=== PATIENT | male | born 1945 | race Two or more races ===

== ENCOUNTER 2020-11-22 13:21 | Emergency (ER) | payer SELFPAY ==
[~2020-11-22] VITALS: Ht 175.3 cm; Wt 136.1 kg
[2020-11-22 13:23] VITALS: BP 118/78
[2020-11-22 14:12] LABS: Basophils # (auto) 0.1 10 ^3/uL (0-0.2); Basophils % (auto) 1.5 % (0.0-2.0); Eosinophils # (auto) 0.1 10 ^3/uL (0-0.8); Eosinophils % (auto) 1.9 % (0.0-7.0); Hematocrit 37.4 % (41.0-53.0); Hemoglobin 12.5 g/dL (13.5-17.5); Lymphocytes # (auto) 0.8 10 ^3/uL (0.4-5.4); Lymphocytes % (auto) 10.6 % (10.0-50.0); Mean Corpuscular Hemoglobin 32.8 pg (28.0-32.0); Mean Corpuscular Hgb Conc. 33.4 g/dL (32.0-36.0); Mean Corpuscular Volume 98.4 fL (80.0-100.0); Monocytes # (auto) 0.4 10 ^3/uL (0-1.3); Neutrophils # (auto) 5.7 10 ^3/uL (1.6-8.6); Nucleated Red Blood Cells % 0.2 %; Red Cell Distribution Width 15.2 % (11.8-14.3); White Blood Cell 7.1 10^3/uL (4.4-10.8)
[2020-11-22 14:32] LABS: INR 1.08 (0.9-1.15); Partial Thromboplastin Time 26.2 sec (23.0-31.2)
[2020-11-22 14:33] LABS: Albumin 3.2 g/dL (3.4-5.0); Anion Gap 9 (5-15); Blood Urea Nitrogen 34 mg/dL (7-18); Calcium 9.1 mg/dL (8.5-10.1); Carbon Dioxide 30 mmol/L (21-32); Chloride 100 mmol/L (98-107); Glucose 112 mg/dL (74-106); Magnesium 1.6 mg/dL (1.6-2.6); Potassium 3.5 mmol/L (3.5-5.1); Sodium 139 mmol/L (136-145)
[2020-11-22 14:39] LABS: Alanine Aminotransferase 31 U/L (16-61); Alkaline Phosphatase 84 U/L (45-117); Aspartate Aminotransferase 28 U/L (15-37); BUN/Creatinine Ratio 19.9; Bilirubin, Total 0.8 mg/dL (0.2-1.0); GFR African American 51 mL/min; GFR Non-African American 42 mL/min; Total Protein 8.1 g/dL (6.4-8.2)
== END 2020-11-22 17:41 | disposition left against medical advice (07) ==
LOC: ER 13:21
DX: R06.02 Shortness of breath (principal); M79.89 Other specified soft tissue disorders; Z53.21 Procedure and treatment not carried out due to patient leaving prior to being seen by health care provider
CPT/HCPCS: 36415; 71045; 80053; 83735; 83880; 84484; 85025; 85610; 85730; 93005

== ENCOUNTER 2020-11-29 13:31 | Emergency (ER) | payer OTHER ==
[~2020-11-29] VITALS: Ht 175.3 cm; Wt 136.1 kg
[2020-11-29 13:35] VITALS: BP 129/81
[2020-11-29] MEDS ORDERED: FUROSEMIDE 40 MG/4 ML VIAL IV ONE (14:00)
[2020-11-29 14:28] LABS: Basophils # (auto) 0.1 10 ^3/uL (0-0.2); Basophils % (auto) 1.6 % (0.0-2.0); Eosinophils # (auto) 0.2 10 ^3/uL (0-0.8); Eosinophils % (auto) 1.9 % (0.0-7.0); Hematocrit 36.3 % (41.0-53.0); Hemoglobin 12.5 g/dL (13.5-17.5); Lymphocytes # (auto) 0.9 10 ^3/uL (0.4-5.4); Lymphocytes % (auto) 10.7 % (10.0-50.0); Mean Corpuscular Hemoglobin 33.7 pg (28.0-32.0); Mean Corpuscular Hgb Conc. 34.5 g/dL (32.0-36.0); Mean Corpuscular Volume 97.6 fL (80.0-100.0); Monocytes # (auto) 0.6 10 ^3/uL (0-1.3); Monocytes % (auto) 7.2 % (0.0-12.0); Neutrophils # (auto) 6.3 10 ^3/uL (1.6-8.6); Neutrophils % (auto) 78.6 % (37.0-80.0); Nucleated Red Blood Cells % 0.1 %; Red Blood Cells 3.72 10^6/uL (4.5-5.90); Red Cell Distribution Width 15.7 % (11.8-14.3); White Blood Cell 8.1 10^3/uL (4.4-10.8)
[2020-11-29 14:48] LABS: Albumin 3.2 g/dL (3.4-5.0); Anion Gap 8 (5-15); Blood Urea Nitrogen 32 mg/dL (7-18); Calcium 9.1 mg/dL (8.5-10.1); Carbon Dioxide 29 mmol/L (21-32); Chloride 96 mmol/L (98-107); Glucose 111 mg/dL (74-106); Magnesium 1.8 mg/dL (1.6-2.6); Potassium 3.7 mmol/L (3.5-5.1); Sodium 133 mmol/L (136-145)
[2020-11-29 14:58] LABS: Alanine Aminotransferase 28 U/L (16-61); Alkaline Phosphatase 93 U/L (45-117); Aspartate Aminotransferase 22 U/L (15-37); BUN/Creatinine Ratio 21.9; Bilirubin, Total 0.8 mg/dL (0.2-1.0); GFR African American 61 mL/min; GFR Non-African American 50 mL/min; Total Protein 8.5 g/dL (6.4-8.2)
== END 2020-11-29 14:47 | disposition left against medical advice (07) ==
LOC: ER 13:31
DX: M79.605 Pain in left leg (principal); M79.604 Pain in right leg; R22.43 Localized swelling, mass and lump, lower limb, bilateral; J44.9 Chronic obstructive pulmonary disease, unspecified; I12.0 Hypertensive chronic kidney disease with stage 5 chronic kidney disease or end stage renal disease; E11.22 Type 2 diabetes mellitus with diabetic chronic kidney disease; N18.6 End stage renal disease; Z87.891 Personal history of nicotine dependence
CPT/HCPCS: 36415; 71045; 80053; 83735; 83880; 84484; 85025; 93005

== ENCOUNTER 2022-09-25 19:36 | Inpatient (IN) | payer OTHER ==
[~2022-09-25] VITALS: Ht 175.3 cm; Wt 114.4 kg
[2022-09-25 21:01] LABS: Basophils # (auto) 0.1 10 ^3/uL (0-0.2); Basophils % (auto) 0.7 % (0.0-2.0); Eosinophils # (auto) 0 10 ^3/uL (0-0.8); Eosinophils % (auto) 0.1 % (0.0-7.0); Hematocrit 42.7 % (41.0-53.0); Hemoglobin 14.5 g/dL (13.5-17.5); Lymphocytes # (auto) 0.2 10 ^3/uL (0.4-5.4); Lymphocytes % (auto) 2.3 % (10.0-50.0); Mean Corpuscular Hemoglobin 33.2 pg (28.0-32.0); Mean Corpuscular Volume 97.8 fL (80.0-100.0); Monocytes # (auto) 0.7 10 ^3/uL (0-1.3); Neutrophils # (auto) 9.6 10 ^3/uL (1.6-8.6); Neutrophils % (auto) 89.9 % (37.0-80.0); Nucleated Red Blood Cells % 0.1 %; Red Blood Cells 4.37 10^6/uL (4.5-5.90); Red Cell Distribution Width 16.2 % (11.8-14.3); White Blood Cell 10.7 10^3/uL (4.4-10.8)
[2022-09-25 21:17] LABS: Albumin 3.1 g/dL (3.4-5.0); BUN/Creatinine Ratio 24.7 (10.0-20.0); Calcium 9.1 mg/dL (8.5-10.1); Potassium 3.9 mmol/L (3.5-5.1)
[2022-09-25 21:20] LABS: Bilirubin, Total 1.3 mg/dL (0.2-1.0); Total Protein 8.2 g/dL (6.4-8.2)
[2022-09-25] MEDS ORDERED: AMIODARONE HCL 150 MG in D5W 5% 100 ML IV ONE (22:15)
[2022-09-25] MEDS ORDERED: AMIODARONE HCL (50 MG/ ML) 3 ML VIAL IV ONE (22:26)
[2022-09-25] MEDS ORDERED: HEPARIN SODIUM (PORCINE) 5000 UNITS/ML 1ML VIAL IV ONE (23:00)
[2022-09-25] MEDS ORDERED: HEPARIN DRIP/D5W 100UNITS/ML 250 ML IV SCH (23:00)
[2022-09-25] MEDS ORDERED: AMIODARONE 450mg/250ml AE 250 ML IV SCH (23:00)
[2022-09-25 23:22] LABS: Urine Bacteria NONE SEEN /hpf (None Seen); Urine Blood 3+ /uL (Negative); Urine Specific Gravity 1.015 (1.001-1.035); Urine WBC 3 /hpf (0 - 3)
[2022-09-25 23:25] LABS: INR 1.03 (0.9-1.15); Partial Thromboplastin Time 30.6 sec (24.6-33.4)
[2022-09-26] MEDS ORDERED: DEXTROSE (50%) 50ML SYRG IV PRN (00:15)
[2022-09-26] MEDS ORDERED: diphenhdrAMINE HCL 50 MG/1 ML VL IV ONE (00:15)
[2022-09-26] MEDS ORDERED: MORPHINE SULFATE INJ 2 MG/ml SYRG IV PRN (00:30)
[2022-09-26] MEDS ORDERED: NITROGLYCERIN 0.4 MG SL TAB SL PRN (00:30)
[2022-09-26 05:01] LABS: Basophils # (auto) 0 10 ^3/uL (0-0.2); Basophils % (auto) 0.3 % (0.0-2.0); Eosinophils # (auto) 0.1 10 ^3/uL (0-0.8); Eosinophils % (auto) 0.7 % (0.0-7.0); Hematocrit 40.3 % (41.0-53.0); Hemoglobin 13.7 g/dL (13.5-17.5); Lymphocytes # (auto) 0.5 10 ^3/uL (0.4-5.4); Lymphocytes % (auto) 5.5 % (10.0-50.0); Mean Corpuscular Hemoglobin 33.1 pg (28.0-32.0); Mean Corpuscular Hgb Conc. 33.9 g/dL (32.0-36.0); Mean Corpuscular Volume 97.6 fL (80.0-100.0); Monocytes # (auto) 0.9 10 ^3/uL (0-1.3); Neutrophils # (auto) 8.4 10 ^3/uL (1.6-8.6); Neutrophils % (auto) 84.5 % (37.0-80.0); Nucleated Red Blood Cells % 0.1 %; Red Blood Cells 4.12 10^6/uL (4.5-5.90); Red Cell Distribution Width 16.1 % (11.8-14.3); White Blood Cell 9.9 10^3/uL (4.4-10.8)
[2022-09-26 05:09] LABS: Calcium 8.6 mg/dL (8.5-10.1); Potassium 3.9 mmol/L (3.5-5.1)
[2022-09-26 05:14] LABS: BUN/Creatinine Ratio 23.2 (10.0-20.0); Bilirubin, Total 1.6 mg/dL (0.2-1.0); Total Protein 7.4 g/dL (6.4-8.2)
[2022-09-26] MEDS: SODIUM CHLOR 0.9% PF (SALINE LOCK) 10ML VIAL/SYR IV SCH ×3 (06:14→23:17)
[2022-09-26] MEDS: InsuLIN REG 1unit/0.01ml Soln (100units/ml) SC SCH ×4 (06:48→22:00)
[2022-09-26] MEDS: ACCU-CHEK COMFORT CURVE STRIP VI SCH ×4 (06:48→23:15)
[2022-09-26] MEDS: AMIODARONE 450mg/250ml AE 250 ML IV SCH ×2 (06:53→23:22)
[2022-09-26 07:29] LABS: INR 1.1 (0.9-1.15); Partial Thromboplastin Time 52.7 sec (24.6-33.4)
[2022-09-26] MEDS: ONDANSETRON HCL 4 MG/2 ML VIAL IV PRN (08:51)
[2022-09-26] MEDS ORDERED: [UNRECOGNIZED DRUG - CODE] EX (09:12)
[2022-09-26] MEDS ORDERED: FLUT50AE IN (09:12)
[2022-09-26] MEDS ORDERED: METF-370 PO (09:12)
[2022-09-26] MEDS ORDERED: EMPA1TAB3 PO (09:12)
[2022-09-26] MEDS ORDERED: TRAM50TA2 PO (09:12)
[2022-09-26] MEDS ORDERED: SPIR25TA8 PO (09:12)
[2022-09-26] MEDS ORDERED: TAMS0.4C36 PO (09:12)
[2022-09-26] MEDS ORDERED: DOCU1CAP46 PO (09:12)
[2022-09-26] MEDS ORDERED: TRIA0.1O TOP (09:12)
[2022-09-26] MEDS ORDERED: APIX5TAB PO (09:12)
[2022-09-26] MEDS ORDERED: ESOM20CA PO (09:12)
[2022-09-26] MEDS ORDERED: SACU1TAB PO (09:12)
[2022-09-26] MEDS ORDERED: METO1TAB9 PO (09:12)
[2022-09-26] MEDS ORDERED: CAPS0.1C6 EX (09:12)
[2022-09-26] MEDS ORDERED: ATOR40TA52 PO (09:12)
[2022-09-26] MEDS: FAMOTIDINE (10MG/ML) 2ML VL IV SCH ×2 (10:13→23:23)
[2022-09-26] MEDS: CARVEDILOL 12.5 MG TAB PO SCH ×2 (10:13→23:17)
[2022-09-26] MEDS: FUROSEMIDE 40 MG/4 ML VIAL IV SCH (10:13)
[2022-09-26] MEDS ORDERED: AMIODARONE 450mg/250ml AE 250 ML IV SCH (12:45)
[2022-09-26 13:20] LABS: INR 1.08 (0.9-1.15); Partial Thromboplastin Time 46.4 sec (24.6-33.4)
[2022-09-26] MEDS: METOPROLOL SUCCINATE XL 50 MG TAB PO SCH (13:31)
[2022-09-26 14:30] VITALS: BP 106/63
[2022-09-26] MEDS: HEPARIN DRIP/D5W 100UNITS/ML 250 ML IV SCH (15:15)
[2022-09-26] MEDS: HYDROcodone-ACET 5/325MG TAB PO PRN ×2 (16:12→23:19)
[2022-09-26 17:03] VITALS: BP 115/77
[2022-09-26 20:00] VITALS: BP 113/69
[2022-09-26 21:33] LABS: INR 1.07 (0.9-1.15); Partial Thromboplastin Time 46.7 sec (24.6-33.4)
[2022-09-26 22:00] VITALS: BP 113/69
[2022-09-27] VITALS (7 sets, daily range): BP systolic 100–121; BP diastolic 66–81
[2022-09-27] MEDS: HEPARIN DRIP/D5W 100UNITS/ML 250 ML IV SCH ×2 (02:04→18:30)
[2022-09-27] MEDS: HYDROcodone-ACET 5/325MG TAB PO PRN (04:24)
[2022-09-27 05:53] LABS: Basophils # (auto) 0.1 10 ^3/uL (0-0.2); Basophils % (auto) 0.6 % (0.0-2.0); Eosinophils # (auto) 1.1 10 ^3/uL (0-0.8); Eosinophils % (auto) 12.7 % (0.0-7.0); Hematocrit 37.2 % (41.0-53.0); Hemoglobin 12.6 g/dL (13.5-17.5); Lymphocytes # (auto) 0.7 10 ^3/uL (0.4-5.4); Lymphocytes % (auto) 8.1 % (10.0-50.0); Mean Corpuscular Hemoglobin 33.2 pg (28.0-32.0); Mean Corpuscular Hgb Conc. 33.8 g/dL (32.0-36.0); Mean Corpuscular Volume 98.4 fL (80.0-100.0); Monocytes # (auto) 0.5 10 ^3/uL (0-1.3); Monocytes % (auto) 6.5 % (0.0-12.0); Neutrophils % (auto) 72.1 % (37.0-80.0); Red Blood Cells 3.78 10^6/uL (4.5-5.90); Red Cell Distribution Width 16.3 % (11.8-14.3); White Blood Cell 8.3 10^3/uL (4.4-10.8)
[2022-09-27 06:06] LABS: Albumin 2.4 g/dL (3.4-5.0); Calcium 8.8 mg/dL (8.5-10.1); Potassium 3.9 mmol/L (3.5-5.1)
[2022-09-27 06:08] LABS: BUN/Creatinine Ratio 26.5 (10.0-20.0)
[2022-09-27 06:09] LABS: INR 1.07 (0.9-1.15); Partial Thromboplastin Time 61.8 sec (24.6-33.4)
[2022-09-27 06:15] LABS: Bilirubin, Total 1.2 mg/dL (0.2-1.0); Total Protein 6.6 g/dL (6.4-8.2)
[2022-09-27] MEDS: SODIUM CHLOR 0.9% PF (SALINE LOCK) 10ML VIAL/SYR IV SCH ×3 (06:50→21:35)
[2022-09-27] MEDS: ACCU-CHEK COMFORT CURVE STRIP VI SCH ×4 (06:53→21:44)
[2022-09-27] MEDS: InsuLIN REG 1unit/0.01ml Soln (100units/ml) SC SCH ×4 (07:07→21:45)
[2022-09-27] MEDS: FAMOTIDINE (10MG/ML) 2ML VL IV SCH ×2 (09:51→21:35)
[2022-09-27] MEDS: FUROSEMIDE 40 MG/4 ML VIAL IV SCH (09:52)
[2022-09-27] MEDS: CARVEDILOL 12.5 MG TAB PO SCH ×2 (09:53→21:36)
[2022-09-27] MEDS: METOPROLOL SUCCINATE XL 50 MG TAB PO SCH (09:53)
[2022-09-27 12:02] LABS: INR 1.07 (0.9-1.15); Partial Thromboplastin Time 65.5 sec (24.6-33.4)
[2022-09-27] MEDS: AMIODARONE 450mg/250ml AE 250 ML IV SCH (12:45)
[2022-09-27 17:24] LABS: INR 1.03 (0.9-1.15); Partial Thromboplastin Time 49.8 sec (24.6-33.4)
[2022-09-27] MEDS ORDERED: VANCOMYCIN PER PHARMACY 0 MG IV SCH (23:00)
[2022-09-27 23:26] LABS: INR 1.06 (0.9-1.15); Partial Thromboplastin Time 44.1 sec (24.6-33.4)
[2022-09-27] MEDS ORDERED: VANCOMYCIN 1GM/250ML 250 ML IV ONE (23:30)
[2022-09-28] MEDS: HEPARIN DRIP/D5W 100UNITS/ML 250 ML IV SCH ×2 (01:20→18:01)
[2022-09-28] MEDS: HYDROcodone-ACET 5/325MG TAB PO PRN ×4 (02:26→21:29)
[2022-09-28 03:19] LABS: INR 1.05 (0.9-1.15); Partial Thromboplastin Time 55.2 sec (24.6-33.4)
[2022-09-28 05:00] VITALS: BP 108/50
[2022-09-28] MEDS: InsuLIN REG 1unit/0.01ml Soln (100units/ml) SC SCH ×4 (06:38→21:33)
[2022-09-28] MEDS: ACCU-CHEK COMFORT CURVE STRIP VI SCH ×4 (06:38→21:28)
[2022-09-28] MEDS: SODIUM CHLOR 0.9% PF (SALINE LOCK) 10ML VIAL/SYR IV SCH ×3 (06:39→21:28)
[2022-09-28 08:00] VITALS: BP 112/70
[2022-09-28] MEDS: FUROSEMIDE 40 MG/4 ML VIAL IV SCH (09:39)
[2022-09-28] MEDS: FAMOTIDINE (10MG/ML) 2ML VL IV SCH ×2 (09:39→21:28)
[2022-09-28] MEDS: CARVEDILOL 12.5 MG TAB PO SCH ×2 (09:40→21:29)
[2022-09-28] MEDS: METOPROLOL SUCCINATE XL 50 MG TAB PO SCH (09:41)
[2022-09-28 11:51] LABS: INR 1.07 (0.9-1.15); Partial Thromboplastin Time 58.5 sec (24.6-33.4)
[2022-09-28] MEDS: FOLIC ACID 1 MG, MULTIPLE VITAMIN 10 ML, MAGNESIUM SULF SDV 50% 8 MEQ, THIAMINE INJ 100... INJ SCH ×5 (13:50)
[2022-09-28] MEDS: VANCOMYCIN 1GM/250ML 250 ML IV SCH (14:55)
[2022-09-28] MEDS: chlordiazePOXIDE HCL 25 MG CAP PO PRN ×2 (14:56→21:29)
[2022-09-28 22:00] VITALS: BP 115/68
[2022-09-29 01:01] LABS: INR 1.1 (0.9-1.15)
[2022-09-29 01:03] LABS: Partial Thromboplastin Time 81.1 sec (24.6-33.4)
[2022-09-29] MEDS: chlordiazePOXIDE HCL 25 MG CAP PO PRN (03:28)
[2022-09-29] MEDS: HYDROcodone-ACET 5/325MG TAB PO PRN ×3 (04:41→17:16)
[2022-09-29] MEDS: VANCOMYCIN 1GM/250ML 250 ML IV SCH ×2 (04:42→20:41)
[2022-09-29] MEDS: SODIUM CHLOR 0.9% PF (SALINE LOCK) 10ML VIAL/SYR IV SCH ×3 (04:42→21:35)
[2022-09-29 05:00] VITALS: BP 105/66
[2022-09-29] MEDS: ACCU-CHEK COMFORT CURVE STRIP VI SCH ×4 (06:04→21:34)
[2022-09-29] MEDS: InsuLIN REG 1unit/0.01ml Soln (100units/ml) SC SCH ×4 (06:07→22:00)
[2022-09-29 08:23] LABS: INR 1.08 (0.9-1.15)
[2022-09-29 08:27] LABS: Partial Thromboplastin Time 85.9 sec (24.6-33.4)
[2022-09-29 09:00] VITALS: BP 113/72
[2022-09-29] MEDS ORDERED: HEPARIN DRIP/D5W 100UNITS/ML 250 ML IV SCH (09:15)
[2022-09-29] MEDS: FUROSEMIDE 40 MG/4 ML VIAL IV SCH (09:30)
[2022-09-29] MEDS: FAMOTIDINE (10MG/ML) 2ML VL IV SCH ×2 (09:30→21:34)
[2022-09-29] MEDS: CARVEDILOL 12.5 MG TAB PO SCH ×2 (09:31→22:00)
[2022-09-29] MEDS: METOPROLOL SUCCINATE XL 50 MG TAB PO SCH (09:31)
[2022-09-29] MEDS: DOCUSATE SOD 100 MG CAP PO PRN (09:32)
[2022-09-29 13:00] VITALS: BP 103/55
[2022-09-29] MEDS: FOLIC ACID 1 MG, MULTIPLE VITAMIN 10 ML, MAGNESIUM SULF SDV 50% 8 MEQ, THIAMINE INJ 100... INJ SCH ×5 (13:22)
[2022-09-29 15:58] LABS: INR 1.08 (0.9-1.15)
[2022-09-29 17:00] VITALS: BP 116/67
[2022-09-29 22:00] VITALS: BP_SYST 104; BP_SYST 110; BP_DIAS 54; BP_DIAS 71
[2022-09-29 22:14] LABS: INR 1.08 (0.9-1.15); Partial Thromboplastin Time 48.9 sec (24.6-33.4)
[2022-09-29] MEDS: HEPARIN DRIP/D5W 100UNITS/ML 250 ML IV SCH (22:30)
[2022-09-30] MEDS: HEPARIN DRIP/D5W 100UNITS/ML 250 ML IV SCH (02:59)
[2022-09-30 05:00] VITALS: BP 110/71
[2022-09-30] MEDS: ACCU-CHEK COMFORT CURVE STRIP VI SCH ×4 (05:40→22:29)
[2022-09-30] MEDS: SODIUM CHLOR 0.9% PF (SALINE LOCK) 10ML VIAL/SYR IV SCH ×3 (05:40→22:28)
[2022-09-30] MEDS: InsuLIN REG 1unit/0.01ml Soln (100units/ml) SC SCH ×4 (06:05→22:26)
[2022-09-30 06:38] LABS: BUN/Creatinine Ratio 17.3 (10.0-20.0); Calcium 8.9 mg/dL (8.5-10.1); Potassium 4.8 mmol/L (3.5-5.1)
[2022-09-30 06:45] LABS: INR 1.06 (0.9-1.15); Partial Thromboplastin Time 62.9 sec (24.6-33.4)
[2022-09-30 06:47] LABS: Basophils # (auto) 0 10 ^3/uL (0-0.2); Basophils % (auto) 0.3 % (0.0-2.0); Eosinophils # (auto) 0.5 10 ^3/uL (0-0.8); Hematocrit 34.4 % (41.0-53.0); Hemoglobin 11.4 g/dL (13.5-17.5); Lymphocytes # (auto) 0.8 10 ^3/uL (0.4-5.4); Lymphocytes % (auto) 5.7 % (10.0-50.0); Mean Corpuscular Hemoglobin 32.8 pg (28.0-32.0); Mean Corpuscular Hgb Conc. 33.2 g/dL (32.0-36.0); Monocytes # (auto) 1.1 10 ^3/uL (0-1.3); Monocytes % (auto) 8.2 % (0.0-12.0); Neutrophils % (auto) 81.8 % (37.0-80.0); Nucleated Red Blood Cells % 0.1 %; Red Blood Cells 3.47 10^6/uL (4.5-5.90); Red Cell Distribution Width 15.9 % (11.8-14.3); White Blood Cell 13.4 10^3/uL (4.4-10.8)
[2022-09-30] MEDS: FUROSEMIDE 40 MG/4 ML VIAL IV SCH (08:45)
[2022-09-30] MEDS: FAMOTIDINE (10MG/ML) 2ML VL IV SCH ×2 (08:46→22:20)
[2022-09-30] MEDS: HYDROcodone-ACET 5/325MG TAB PO PRN ×2 (08:47→22:20)
[2022-09-30] MEDS: DOCUSATE SOD 100 MG CAP PO PRN (08:47)
[2022-09-30 09:00] VITALS: BP 102/65
[2022-09-30] MEDS: CARVEDILOL 12.5 MG TAB PO SCH ×2 (10:00→22:20)
[2022-09-30] MEDS: METOPROLOL SUCCINATE XL 50 MG TAB PO SCH (10:00)
[2022-09-30] MEDS ORDERED: levoFLOXacin 500MG 100 ML IV ONE (10:45)
[2022-09-30] MEDS: VANCOMYCIN 1GM/250ML 250 ML IV SCH (11:23)
[2022-09-30 13:26] LABS: INR 1.06 (0.9-1.15); Partial Thromboplastin Time 69.8 sec (24.6-33.4)
[2022-09-30] MEDS: FOLIC ACID 1 MG, MULTIPLE VITAMIN 10 ML, MAGNESIUM SULF SDV 50% 8 MEQ, THIAMINE INJ 100... INJ SCH ×5 (14:01)
[2022-09-30 17:00] VITALS: BP 111/72
[2022-09-30 19:22] LABS: INR 1.08 (0.9-1.15)
[2022-09-30 19:27] LABS: Partial Thromboplastin Time 78.4 sec (24.6-33.4)
[2022-09-30] MEDS ORDERED: HEPARIN DRIP/D5W 100UNITS/ML 250 ML IV SCH (19:45)
[2022-10-01] MEDS ORDERED: diphenhdrAMINE HCL 25 MG CAP PO ONE (01:00)
[2022-10-01 03:02] LABS: INR 1.08 (0.9-1.15); Partial Thromboplastin Time 55.4 sec (24.6-33.4)
[2022-10-01] MEDS: VANCOMYCIN 1GM/250ML 250 ML IV SCH ×2 (05:04→23:53)
[2022-10-01] MEDS: SODIUM CHLOR 0.9% PF (SALINE LOCK) 10ML VIAL/SYR IV SCH ×3 (05:05→21:55)
[2022-10-01] MEDS: ACCU-CHEK COMFORT CURVE STRIP VI SCH ×4 (06:17→21:54)
[2022-10-01] MEDS: InsuLIN REG 1unit/0.01ml Soln (100units/ml) SC SCH ×4 (06:19→21:36)
[2022-10-01] MEDS: HYDROcodone-ACET 5/325MG TAB PO PRN ×3 (07:04→13:12)
[2022-10-01 09:53] LABS: INR 1.05 (0.9-1.15); Partial Thromboplastin Time 44.3 sec (24.6-33.4)
[2022-10-01 10:00] VITALS: BP 103/64
[2022-10-01] MEDS: METOPROLOL SUCCINATE XL 50 MG TAB PO SCH (10:00)
[2022-10-01] MEDS: CARVEDILOL 12.5 MG TAB PO SCH ×2 (10:00→21:34)
[2022-10-01] MEDS: FUROSEMIDE 40 MG/4 ML VIAL IV SCH (10:02)
[2022-10-01] MEDS: FAMOTIDINE (10MG/ML) 2ML VL IV SCH ×2 (10:03→21:35)
[2022-10-01] MEDS: levoFLOXacin 500MG 100 ML IV SCH (10:03)
[2022-10-01] MEDS: HEPARIN DRIP/D5W 100UNITS/ML 250 ML IV SCH ×3 (10:48→18:16)
[2022-10-01 13:00] VITALS: BP 93/66
[2022-10-01] MEDS: FOLIC ACID 1 MG, MULTIPLE VITAMIN 10 ML, MAGNESIUM SULF SDV 50% 8 MEQ, THIAMINE INJ 100... INJ SCH ×5 (13:25)
[2022-10-01 16:29] VITALS: BP 92/63
[2022-10-01 16:31] VITALS: BP 104/65
[2022-10-01 17:26] LABS: INR 1.04 (0.9-1.15); Partial Thromboplastin Time 38.3 sec (24.6-33.4)
[2022-10-01 22:00] VITALS: BP 121/69
[2022-10-02 01:02] LABS: INR 1.04 (0.9-1.15); Partial Thromboplastin Time 56.1 sec (24.6-33.4)
[2022-10-02 05:00] VITALS: BP 102/65
[2022-10-02] MEDS: DOCUSATE SOD 100 MG CAP PO PRN (06:17)
[2022-10-02] MEDS: HYDROcodone-ACET 5/325MG TAB PO PRN ×3 (06:17→22:19)
[2022-10-02] MEDS: SODIUM CHLOR 0.9% PF (SALINE LOCK) 10ML VIAL/SYR IV SCH ×3 (06:19→22:18)
[2022-10-02] MEDS: ACCU-CHEK COMFORT CURVE STRIP VI SCH ×4 (06:20→22:19)
[2022-10-02] MEDS: InsuLIN REG 1unit/0.01ml Soln (100units/ml) SC SCH ×4 (06:22→22:00)
[2022-10-02] MEDS: HEPARIN DRIP/D5W 100UNITS/ML 250 ML IV SCH ×2 (08:03→21:30)
[2022-10-02 09:56] VITALS: BP 105/65
[2022-10-02] MEDS: METOPROLOL SUCCINATE XL 50 MG TAB PO SCH (10:00)
[2022-10-02] MEDS: CARVEDILOL 12.5 MG TAB PO SCH ×2 (10:00→22:27)
[2022-10-02] MEDS: FUROSEMIDE 40 MG/4 ML VIAL IV SCH (10:06)
[2022-10-02] MEDS: levoFLOXacin 500MG 100 ML IV SCH (10:06)
[2022-10-02] MEDS: FAMOTIDINE (10MG/ML) 2ML VL IV SCH ×2 (10:06→22:18)
[2022-10-02 12:00] VITALS: BP 107/67
[2022-10-02 13:24] LABS: INR 1.03 (0.9-1.15); Partial Thromboplastin Time 47.1 sec (24.6-33.4)
[2022-10-02] MEDS ORDERED: HEPARIN DRIP/D5W 100UNITS/ML 250 ML IV SCH (14:05)
[2022-10-02] MEDS: FOLIC ACID 1 MG, MULTIPLE VITAMIN 10 ML, MAGNESIUM SULF SDV 50% 8 MEQ, THIAMINE INJ 100... INJ SCH ×5 (14:15)
[2022-10-02 17:00] VITALS: BP 110/73
[2022-10-02 20:56] LABS: INR 1.07 (0.9-1.15)
[2022-10-02 21:01] LABS: Partial Thromboplastin Time 82.4 sec (24.6-33.4)
[2022-10-02] MEDS: ONDANSETRON HCL 4 MG/2 ML VIAL IV PRN (23:43)
[2022-10-03 03:42] LABS: Basophils # (auto) 0 10 ^3/uL (0-0.2); Basophils % (auto) 0.4 % (0.0-2.0); Eosinophils # (auto) 0.9 10 ^3/uL (0-0.8); Eosinophils % (auto) 13.5 % (0.0-7.0); Hematocrit 36.3 % (41.0-53.0); Hemoglobin 12.2 g/dL (13.5-17.5); Lymphocytes % (auto) 15.1 % (10.0-50.0); Mean Corpuscular Hemoglobin 32.6 pg (28.0-32.0); Mean Corpuscular Hgb Conc. 33.5 g/dL (32.0-36.0); Mean Corpuscular Volume 97.2 fL (80.0-100.0); Monocytes # (auto) 0.8 10 ^3/uL (0-1.3); Monocytes % (auto) 12.7 % (0.0-12.0); Neutrophils # (auto) 3.7 10 ^3/uL (1.6-8.6); Neutrophils % (auto) 58.3 % (37.0-80.0); Nucleated Red Blood Cells % 0.2 %; Red Blood Cells 3.74 10^6/uL (4.5-5.90); White Blood Cell 6.4 10^3/uL (4.4-10.8)
[2022-10-03 04:12] LABS: INR 1.06 (0.9-1.15)
[2022-10-03 04:49] LABS: Partial Thromboplastin Time 71.7 sec (24.6-33.4)
[2022-10-03] MEDS: InsuLIN REG 1unit/0.01ml Soln (100units/ml) SC SCH ×4 (06:14→22:02)
[2022-10-03] MEDS: SODIUM CHLOR 0.9% PF (SALINE LOCK) 10ML VIAL/SYR IV SCH ×3 (06:21→21:58)
[2022-10-03] MEDS: HYDROcodone-ACET 5/325MG TAB PO PRN ×3 (06:21→22:03)
[2022-10-03] MEDS: ACCU-CHEK COMFORT CURVE STRIP VI SCH ×4 (06:32→21:45)
[2022-10-03 09:00] VITALS: BP 97/63
[2022-10-03 09:50] LABS: INR 1.03 (0.9-1.15); Partial Thromboplastin Time 34.5 sec (24.6-33.4)
[2022-10-03] MEDS: METOPROLOL SUCCINATE XL 50 MG TAB PO SCH (10:00)
[2022-10-03] MEDS: CARVEDILOL 12.5 MG TAB PO SCH ×2 (10:00→21:59)
[2022-10-03] MEDS: levoFLOXacin 500MG 100 ML IV SCH (10:09)
[2022-10-03] MEDS: FAMOTIDINE (10MG/ML) 2ML VL IV SCH ×2 (10:09→21:57)
[2022-10-03] MEDS: FUROSEMIDE 40 MG/4 ML VIAL IV SCH (10:10)
[2022-10-03] MEDS: HEPARIN DRIP/D5W 100UNITS/ML 250 ML IV SCH ×2 (12:13→18:03)
[2022-10-03 13:00] VITALS: BP 106/76
[2022-10-03 14:51] LABS: INR 1.06 (0.9-1.15); Partial Thromboplastin Time 60.6 sec (24.6-33.4)
[2022-10-03] MEDS: FOLIC ACID 1 MG, MULTIPLE VITAMIN 10 ML, MAGNESIUM SULF SDV 50% 8 MEQ, THIAMINE INJ 100... INJ SCH ×5 (15:06)
[2022-10-03 17:00] VITALS: BP 111/65
[2022-10-03] MEDS: VANCOMYCIN 750mg/250ml 250 ML IV SCH (18:29)
[2022-10-03 20:47] LABS: INR 1.06 (0.9-1.15)
[2022-10-03 20:49] LABS: Partial Thromboplastin Time 77.1 sec (24.6-33.4)
[2022-10-03 22:00] VITALS: BP 116/61
[2022-10-04] MEDS: HYDROcodone-ACET 5/325MG TAB PO PRN ×3 (03:01→16:25)
[2022-10-04 03:33] LABS: INR 1.06 (0.9-1.15)
[2022-10-04 05:00] VITALS: BP 105/66
[2022-10-04] MEDS: InsuLIN REG 1unit/0.01ml Soln (100units/ml) SC SCH ×4 (07:00→22:37)
[2022-10-04] MEDS: ACCU-CHEK COMFORT CURVE STRIP VI SCH ×4 (07:07→21:32)
[2022-10-04] MEDS: SODIUM CHLOR 0.9% PF (SALINE LOCK) 10ML VIAL/SYR IV SCH ×3 (07:08→21:32)
[2022-10-04 08:00] VITALS: BP 119/66
[2022-10-04 09:43] LABS: Hematocrit 37.8 % (41.0-53.0); Hemoglobin 12.6 g/dL (13.5-17.5); Mean Corpuscular Hemoglobin 32.4 pg (28.0-32.0); Mean Corpuscular Hgb Conc. 33.4 g/dL (32.0-36.0); Mean Corpuscular Volume 96.9 fL (80.0-100.0); Red Cell Distribution Width 16.1 % (11.8-14.3); White Blood Cell 8.4 10^3/uL (4.4-10.8)
[2022-10-04 09:46] LABS: Basophils % (manual) 0 (0.0-2.0); Blast Cells 0; Metamyelocytes % 0; Myelocytes % 0; Promyelocytes % 0
[2022-10-04 09:54] LABS: INR 1.06 (0.9-1.15); Partial Thromboplastin Time 66.9 sec (24.6-33.4)
[2022-10-04] MEDS: HEPARIN DRIP/D5W 100UNITS/ML 250 ML IV SCH ×2 (10:08→12:19)
[2022-10-04] MEDS: FAMOTIDINE (10MG/ML) 2ML VL IV SCH ×2 (10:24→21:21)
[2022-10-04] MEDS: FUROSEMIDE 40 MG/4 ML VIAL IV SCH (10:24)
[2022-10-04] MEDS: levoFLOXacin 500MG 100 ML IV SCH (10:25)
[2022-10-04] MEDS: METOPROLOL SUCCINATE XL 50 MG TAB PO SCH (10:25)
[2022-10-04] MEDS: CARVEDILOL 12.5 MG TAB PO SCH ×2 (10:26→21:33)
[2022-10-04 12:00] VITALS: BP 96/65
[2022-10-04 12:22] LABS: Band Neutrophils % (manual) 2; Eosinophils % (manual) 11 (0-7); Lymphocytes % (manual) 10 (10.0-50.0); Monocytes % (manual) 9 (0-12); Reactive Lymphocytes 1
[2022-10-04] MEDS: FOLIC ACID 1 MG, MULTIPLE VITAMIN 10 ML, MAGNESIUM SULF SDV 50% 8 MEQ, THIAMINE INJ 100... INJ SCH ×5 (12:48)
[2022-10-04 16:00] VITALS: BP 108/81
[2022-10-04 17:00] LABS: INR 1.06 (0.9-1.15); Partial Thromboplastin Time 65.6 sec (24.6-33.4)
[2022-10-04] MEDS: VANCOMYCIN 750mg/250ml 250 ML IV SCH (17:31)
[2022-10-04 22:00] VITALS: BP 104/64
[2022-10-05] MEDS ORDERED: HYDROcodone-ACET 5/325MG TAB PO ONE (05:45)
[2022-10-05] MEDS: SODIUM CHLOR 0.9% PF (SALINE LOCK) 10ML VIAL/SYR IV SCH ×3 (06:03→22:13)
[2022-10-05] MEDS: ACCU-CHEK COMFORT CURVE STRIP VI SCH ×4 (06:09→21:21)
[2022-10-05] MEDS: InsuLIN REG 1unit/0.01ml Soln (100units/ml) SC SCH ×4 (06:09→21:21)
[2022-10-05] MEDS: HEPARIN DRIP/D5W 100UNITS/ML 250 ML IV SCH ×3 (06:25→23:43)
[2022-10-05 07:09] LABS: INR 1.04 (0.9-1.15); Partial Thromboplastin Time 44.7 sec (24.6-33.4)
[2022-10-05 08:55] VITALS: BP 116/65
[2022-10-05] MEDS: METOPROLOL SUCCINATE XL 50 MG TAB PO SCH (09:23)
[2022-10-05] MEDS: FAMOTIDINE (10MG/ML) 2ML VL IV SCH ×2 (09:23→22:10)
[2022-10-05] MEDS: CARVEDILOL 12.5 MG TAB PO SCH ×2 (09:23→22:12)
[2022-10-05] MEDS: FUROSEMIDE 40 MG/4 ML VIAL IV SCH (09:23)
[2022-10-05] MEDS: levoFLOXacin 500MG 100 ML IV SCH (09:24)
[2022-10-05] MEDS: HYDROcodone-ACET 5/325MG TAB PO PRN (12:24)
[2022-10-05] MEDS: FOLIC ACID 1 MG, MULTIPLE VITAMIN 10 ML, MAGNESIUM SULF SDV 50% 8 MEQ, THIAMINE INJ 100... INJ SCH ×5 (12:27)
[2022-10-05 12:55] VITALS: BP 101/58
[2022-10-05 15:55] LABS: Basophils # (auto) 0.1 10 ^3/uL (0-0.2); Basophils % (auto) 1.4 % (0.0-2.0); Eosinophils # (auto) 0.8 10 ^3/uL (0-0.8); Eosinophils % (auto) 8.1 % (0.0-7.0); Hematocrit 36.6 % (41.0-53.0); Hemoglobin 12.2 g/dL (13.5-17.5); Lymphocytes # (auto) 0.8 10 ^3/uL (0.4-5.4); Lymphocytes % (auto) 8.4 % (10.0-50.0); Mean Corpuscular Hemoglobin 32.2 pg (28.0-32.0); Mean Corpuscular Hgb Conc. 33.4 g/dL (32.0-36.0); Mean Corpuscular Volume 96.4 fL (80.0-100.0); Monocytes # (auto) 0.9 10 ^3/uL (0-1.3); Monocytes % (auto) 9.4 % (0.0-12.0); Neutrophils # (auto) 7.2 10 ^3/uL (1.6-8.6); Neutrophils % (auto) 72.7 % (37.0-80.0); Nucleated Red Blood Cells % 0.1 %; Red Blood Cells 3.79 10^6/uL (4.5-5.90); Red Cell Distribution Width 16.2 % (11.8-14.3); White Blood Cell 9.9 10^3/uL (4.4-10.8)
[2022-10-05 16:27] LABS: INR 1.07 (0.9-1.15); Partial Thromboplastin Time 61.7 sec (24.6-33.4)
[2022-10-05 17:07] VITALS: BP 103/66
[2022-10-05] MEDS: VANCOMYCIN 750mg/250ml 250 ML IV SCH (17:53)
[2022-10-05 22:39] LABS: INR 1.09 (0.9-1.15)
[2022-10-05 22:54] LABS: Partial Thromboplastin Time 73.8 sec (24.6-33.4)
[2022-10-06 00:33] VITALS: BP 103/60
[2022-10-06] MEDS: HYDROcodone-ACET 5/325MG TAB PO PRN ×3 (03:16→16:53)
[2022-10-06 03:38] LABS: Basophils # (auto) 0 10 ^3/uL (0-0.2); Basophils % (auto) 0.3 % (0.0-2.0); Eosinophils # (auto) 0.8 10 ^3/uL (0-0.8); Eosinophils % (auto) 6.4 % (0.0-7.0); Hematocrit 37.1 % (41.0-53.0); Hemoglobin 12.4 g/dL (13.5-17.5); Lymphocytes % (auto) 8.3 % (10.0-50.0); Mean Corpuscular Hemoglobin 32.7 pg (28.0-32.0); Mean Corpuscular Hgb Conc. 33.5 g/dL (32.0-36.0); Mean Corpuscular Volume 97.4 fL (80.0-100.0); Monocytes % (auto) 8.3 % (0.0-12.0); Neutrophils # (auto) 9.1 10 ^3/uL (1.6-8.6); Neutrophils % (auto) 76.7 % (37.0-80.0); Nucleated Red Blood Cells % 0.1 %; Red Blood Cells 3.81 10^6/uL (4.5-5.90); Red Cell Distribution Width 16.1 % (11.8-14.3); White Blood Cell 11.8 10^3/uL (4.4-10.8)
[2022-10-06] MEDS: SODIUM CHLOR 0.9% PF (SALINE LOCK) 10ML VIAL/SYR IV SCH ×3 (06:08→22:00)
[2022-10-06] MEDS: InsuLIN REG 1unit/0.01ml Soln (100units/ml) SC SCH ×4 (06:21→22:00)
[2022-10-06] MEDS: ACCU-CHEK COMFORT CURVE STRIP VI SCH ×4 (06:22→22:00)
[2022-10-06] MEDS: FUROSEMIDE 40 MG/4 ML VIAL IV SCH (08:57)
[2022-10-06] MEDS: FAMOTIDINE (10MG/ML) 2ML VL IV SCH ×2 (08:57→22:40)
[2022-10-06] MEDS: levoFLOXacin 500MG 100 ML IV SCH (08:57)
[2022-10-06] MEDS: CARVEDILOL 12.5 MG TAB PO SCH ×2 (08:58→22:39)
[2022-10-06] MEDS: METOPROLOL SUCCINATE XL 50 MG TAB PO SCH (08:58)
[2022-10-06 09:00] VITALS: BP 114/83
[2022-10-06] MEDS: ONDANSETRON HCL 4 MG/2 ML VIAL IV PRN (10:42)
[2022-10-06 12:30] VITALS: BP 104/67
[2022-10-06] MEDS: FOLIC ACID 1 MG, MULTIPLE VITAMIN 10 ML, MAGNESIUM SULF SDV 50% 8 MEQ, THIAMINE INJ 100... INJ SCH ×5 (13:15)
[2022-10-06] MEDS: HEPARIN DRIP/D5W 100UNITS/ML 250 ML IV SCH (13:17)
[2022-10-06 16:50] VITALS: BP 105/77
[2022-10-06] MEDS: VANCOMYCIN 750mg/250ml 250 ML IV SCH (19:55)
[2022-10-06 22:00] VITALS: BP 133/83
[2022-10-07 05:00] VITALS: BP 104/67
[2022-10-07] MEDS: SODIUM CHLOR 0.9% PF (SALINE LOCK) 10ML VIAL/SYR IV SCH ×3 (06:00→22:00)
[2022-10-07] MEDS: InsuLIN REG 1unit/0.01ml Soln (100units/ml) SC SCH ×4 (06:34→22:20)
[2022-10-07 06:35] LABS: INR 1.07 (0.9-1.15); Partial Thromboplastin Time 54.4 sec (24.6-33.4)
[2022-10-07] MEDS: ACCU-CHEK COMFORT CURVE STRIP VI SCH ×4 (06:39→22:22)
[2022-10-07] MEDS: HEPARIN DRIP/D5W 100UNITS/ML 250 ML IV SCH ×2 (06:47→20:32)
[2022-10-07 08:30] VITALS: BP 106/78
[2022-10-07] MEDS: FUROSEMIDE 40 MG/4 ML VIAL IV SCH (08:33)
[2022-10-07] MEDS: FAMOTIDINE (10MG/ML) 2ML VL IV SCH ×2 (08:33→22:21)
[2022-10-07] MEDS: levoFLOXacin 500MG 100 ML IV SCH (08:33)
[2022-10-07] MEDS: HYDROcodone-ACET 5/325MG TAB PO PRN ×2 (08:34→18:46)
[2022-10-07] MEDS: CARVEDILOL 12.5 MG TAB PO SCH ×2 (08:36→22:21)
[2022-10-07] MEDS: METOPROLOL SUCCINATE XL 50 MG TAB PO SCH (08:36)
[2022-10-07 12:25] LABS: BUN/Creatinine Ratio 14.9 (10.0-20.0); Calcium 9.6 mg/dL (8.5-10.1)
[2022-10-07] MEDS: FOLIC ACID 1 MG, MULTIPLE VITAMIN 10 ML, MAGNESIUM SULF SDV 50% 8 MEQ, THIAMINE INJ 100... INJ SCH ×5 (12:34)
[2022-10-07 13:00] VITALS: BP 93/68
[2022-10-07] MEDS: VANCOMYCIN 750mg/250ml 250 ML IV SCH (20:36)
[2022-10-07 22:00] VITALS: BP 111/74
[2022-10-07] MEDS: ONDANSETRON HCL 4 MG/2 ML VIAL IV PRN (22:21)
[2022-10-07] MEDS: DOCUSATE SOD 100 MG CAP PO PRN (22:25)
[2022-10-08] MEDS: HYDROcodone-ACET 5/325MG TAB PO PRN ×4 (00:49→21:51)
[2022-10-08 05:00] VITALS: BP 102/68
[2022-10-08] MEDS: InsuLIN REG 1unit/0.01ml Soln (100units/ml) SC SCH ×4 (06:20→22:00)
[2022-10-08] MEDS: SODIUM CHLOR 0.9% PF (SALINE LOCK) 10ML VIAL/SYR IV SCH ×3 (06:22→21:56)
[2022-10-08] MEDS: ACCU-CHEK COMFORT CURVE STRIP VI SCH ×4 (06:22→22:03)
[2022-10-08 06:48] LABS: Protein, Urine 64.9 mg/dL (0.0-11.9)
[2022-10-08 06:59] LABS: BUN/Creatinine Ratio 13.9 (10.0-20.0); Calcium 8.9 mg/dL (8.5-10.1); Potassium 3.3 mmol/L (3.5-5.1)
[2022-10-08] MEDS: ONDANSETRON HCL 4 MG/2 ML VIAL IV PRN (07:58)
[2022-10-08 08:00] LABS: INR 1.1 (0.9-1.15)
[2022-10-08] MEDS ORDERED: FUROSEMIDE 40 MG/4 ML VIAL IV ONE (08:00)
[2022-10-08 08:04] LABS: Partial Thromboplastin Time 90.2 sec (24.6-33.4)
[2022-10-08] MEDS: FUROSEMIDE 40 MG/4 ML VIAL IV SCH (08:08)
[2022-10-08] MEDS ORDERED: HEPARIN DRIP/D5W 100UNITS/ML 250 ML IV SCH (08:15)
[2022-10-08 08:24] VITALS: BP 112/70
[2022-10-08] MEDS: FAMOTIDINE (10MG/ML) 2ML VL IV SCH ×2 (09:17→21:49)
[2022-10-08] MEDS: levoFLOXacin 500MG 100 ML IV SCH (09:17)
[2022-10-08] MEDS: CARVEDILOL 12.5 MG TAB PO SCH ×2 (09:19→21:56)
[2022-10-08] MEDS: METOPROLOL SUCCINATE XL 50 MG TAB PO SCH (09:19)
[2022-10-08] MEDS ORDERED: SODIUM CHLORIDE 1 GM TAB PO ONE (10:45)
[2022-10-08] MEDS ORDERED: POTASSIUM EFFERVESENT TAB 25 MEQ PO ONE (11:45)
[2022-10-08 13:00] VITALS: BP 93/61
[2022-10-08 15:46] LABS: INR 1.05 (0.9-1.15); Partial Thromboplastin Time 31.3 sec (24.6-33.4)
[2022-10-08 17:00] VITALS: BP 113/65
[2022-10-08] MEDS: VANCOMYCIN 750mg/250ml 250 ML IV SCH (20:32)
[2022-10-08 22:00] VITALS: BP 101/72
[2022-10-09 05:00] VITALS: BP 101/71
[2022-10-09] MEDS: HYDROcodone-ACET 5/325MG TAB PO PRN ×2 (05:09→22:58)
[2022-10-09] MEDS: DOCUSATE SOD 100 MG CAP PO PRN (05:20)
[2022-10-09] MEDS: ACCU-CHEK COMFORT CURVE STRIP VI SCH ×3 (05:34→18:16)
[2022-10-09] MEDS: InsuLIN REG 1unit/0.01ml Soln (100units/ml) SC SCH ×3 (05:34→18:19)
[2022-10-09] MEDS: SODIUM CHLOR 0.9% PF (SALINE LOCK) 10ML VIAL/SYR IV SCH ×3 (05:35→22:00)
[2022-10-09 05:43] LABS: BUN/Creatinine Ratio 16.6 (10.0-20.0); Calcium 9.1 mg/dL (8.5-10.1)
[2022-10-09 07:30] VITALS: BP 98/59
[2022-10-09 09:00] VITALS: BP 106/72
[2022-10-09] MEDS: CARVEDILOL 12.5 MG TAB PO SCH ×2 (10:00→22:48)
[2022-10-09] MEDS: FAMOTIDINE (10MG/ML) 2ML VL IV SCH (10:23)
[2022-10-09] MEDS: levoFLOXacin 500MG 100 ML IV SCH (10:23)
[2022-10-09] MEDS: METOPROLOL SUCCINATE XL 50 MG TAB PO SCH (10:24)
[2022-10-09] MEDS ORDERED: LACTULOSE 20Gm/30ML SOLN PO ONE (12:45)
[2022-10-09] MEDS ORDERED: ENOXAPARIN SOD 40 MG/0.4 ML SYRINGE SC ONE (12:45)
[2022-10-09 13:00] VITALS: BP 98/70
[2022-10-09 17:00] VITALS: BP 96/75
[2022-10-09] MEDS: TAMSULOSIN HYDROCHLORIDE 0.4 MG CAP PO SCH (18:15)
[2022-10-09 22:00] VITALS: BP 108/64
[2022-10-09] MEDS: LACTULOSE 20Gm/30ML SOLN PO SCH (22:48)
[2022-10-10 05:00] VITALS: BP 117/76
[2022-10-10] MEDS: ACCU-CHEK COMFORT CURVE STRIP VI SCH ×3 (06:00→12:17)
[2022-10-10] MEDS: SODIUM CHLOR 0.9% PF (SALINE LOCK) 10ML VIAL/SYR IV SCH ×3 (06:00→21:49)
[2022-10-10] MEDS: InsuLIN REG 1unit/0.01ml Soln (100units/ml) SC SCH ×2 (06:51→12:19)
[2022-10-10] MEDS ORDERED: ONDANSETRON HCL 4 MG/2 ML VIAL IV PRN (07:00)
[2022-10-10 07:16] LABS: Basophils # (auto) 0.1 10 ^3/uL (0-0.2); Basophils % (auto) 0.8 % (0.0-2.0); Eosinophils # (auto) 0.2 10 ^3/uL (0-0.8); Eosinophils % (auto) 2.2 % (0.0-7.0); Hematocrit 37.7 % (41.0-53.0); Hemoglobin 12.8 g/dL (13.5-17.5); Lymphocytes # (auto) 1.1 10 ^3/uL (0.4-5.4); Lymphocytes % (auto) 10.8 % (10.0-50.0); Mean Corpuscular Hemoglobin 32.4 pg (28.0-32.0); Mean Corpuscular Hgb Conc. 33.9 g/dL (32.0-36.0); Mean Corpuscular Volume 95.4 fL (80.0-100.0); Monocytes # (auto) 0.9 10 ^3/uL (0-1.3); Monocytes % (auto) 8.5 % (0.0-12.0); Neutrophils # (auto) 8.1 10 ^3/uL (1.6-8.6); Neutrophils % (auto) 77.7 % (37.0-80.0); Nucleated Red Blood Cells % 0.1 %; Red Blood Cells 3.95 10^6/uL (4.5-5.90); Red Cell Distribution Width 15.4 % (11.8-14.3); White Blood Cell 10.5 10^3/uL (4.4-10.8)
[2022-10-10 07:30] VITALS: BP 117/76
[2022-10-10 07:57] LABS: Potassium 4.4 mmol/L (3.5-5.1)
[2022-10-10 08:02] LABS: BUN/Creatinine Ratio 18.6 (10.0-20.0); Calcium 9.3 mg/dL (8.5-10.1)
[2022-10-10 09:00] VITALS: BP_SYST 123; BP_SYST 94; BP_DIAS 66; BP_DIAS 69
[2022-10-10] MEDS: LACTULOSE 20Gm/30ML SOLN PO SCH ×2 (09:41→21:48)
[2022-10-10] MEDS: CARVEDILOL 12.5 MG TAB PO SCH ×2 (09:42→21:50)
[2022-10-10] MEDS: ENOXAPARIN SOD 40 MG/0.4 ML SYRINGE SC SCH (09:47)
[2022-10-10] MEDS: levoFLOXacin 500MG 100 ML IV SCH (09:48)
[2022-10-10] MEDS ORDERED: FAMOTIDINE (10MG/ML) 2ML VL IV SCH (10:00)
[2022-10-10] MEDS ORDERED: DOCUSATE SOD 100 MG CAP PO ONE (16:15)
[2022-10-10] MEDS ORDERED: SODIUM CHLORIDE 0.9% 1,000 ML IV SCH ×2 (16:15)
[2022-10-10] MEDS ORDERED: LACTULOSE 20Gm/30ML SOLN PO ONE (16:15)
[2022-10-10] MEDS: HYDROcodone-ACET 5/325MG TAB PO PRN (16:32)
[2022-10-10 17:00] VITALS: BP 107/64
[2022-10-10] MEDS: TAMSULOSIN HYDROCHLORIDE 0.4 MG CAP PO SCH (17:39)
[2022-10-10] MEDS ORDERED: FUROSEMIDE 20 MG/2 ML VIAL IV ONE (18:45)
[2022-10-10] MEDS ORDERED: BISACODYL 10 MG RECT SUPP PR ONE (18:45)
[2022-10-10 20:00] VITALS: BP 117/76
[2022-10-10 21:44] VITALS: BP 112/74
[2022-10-10] MEDS: DOCUSATE SOD 100 MG CAP PO PRN (21:48)
[2022-10-11] MEDS: SODIUM CHLOR 0.9% PF (SALINE LOCK) 10ML VIAL/SYR IV SCH ×2 (06:07→14:00)
[2022-10-11 06:41] LABS: Calcium 9.1 mg/dL (8.5-10.1); Potassium 4.8 mmol/L (3.5-5.1)
[2022-10-11 06:47] LABS: BUN/Creatinine Ratio 17.9 (10.0-20.0)
[2022-10-11 09:00] VITALS: BP 106/66
[2022-10-11] MEDS: ENOXAPARIN SOD 40 MG/0.4 ML SYRINGE SC SCH (10:13)
[2022-10-11] MEDS: LACTULOSE 20Gm/30ML SOLN PO SCH (10:13)
[2022-10-11] MEDS: CARVEDILOL 12.5 MG TAB PO SCH (10:13)
[2022-10-11] MEDS: levoFLOXacin 500MG 100 ML IV SCH (10:13)
[2022-10-11 13:00] VITALS: BP 89/46
[2022-10-11] MEDS ORDERED: SODIUM CHLORIDE 0.9% 1,000 ML IV SCH (17:30)
[2022-10-11] MEDS ORDERED: metroNIDAZOLE 500MG/100ML 100 ML IV ONE (17:30)
[2022-10-11 17:51] VITALS: BP 110/69
[2022-10-11] MEDS: TAMSULOSIN HYDROCHLORIDE 0.4 MG CAP PO SCH (18:10)
[2022-10-11] MEDS ORDERED: POLYETHYLENE GLYCOL 17 GM PWDR PO ONE (19:00)
[2022-10-11] MEDS ORDERED: PANTOPRAZOLE 40 MG/10 ML VIAL INJ IV ONE (20:00)
[2022-10-11] MEDS ORDERED: MORPHINE SULFATE INJ 2 MG/ml SYRG IV PRN (20:00)
[2022-10-11] MEDS ORDERED: MORPHINE SULFATE INJ 2 MG/ml SYRG ONE (20:12)
[2022-10-11] MEDS ORDERED: ONDANSETRON HCL 4 MG/2 ML VIAL ONE (20:12)
[2022-10-11] MEDS ORDERED: ONDANSETRON HCL 4 MG/2 ML VIAL IV PRN (20:15)
[2022-10-11] MEDS ORDERED: FLEET MINERAL OIL ENEMA 133 ML PR ONE (21:00)
[2022-10-11] MEDS ORDERED: ALBUMIN 25% 50 ML IV ONE (21:00)
[2022-10-11 21:12] VITALS: BP 89/57
[2022-10-11 21:49] LABS: INR 1.09 (0.9-1.15); Partial Thromboplastin Time 31.7 sec (24.6-33.4)
[2022-10-11 22:00] VITALS: BP 91/64
[2022-10-11 23:00] VITALS: BP 111/70
[2022-10-11] MEDS: METOCLOPRAMIDE HCL 5MG/ml INJ 2ml VIAL IV SCH (23:28)
[2022-10-11] MEDS ORDERED: KETOROLAC TROMETH 30 MG/ML 1ML VIAL IV PRN (23:30)
[2022-10-12] VITALS (17 sets, daily range): BP systolic 86–120; BP diastolic 53–69
[2022-10-12] MEDS: metroNIDAZOLE 500MG/100ML 100 ML IV SCH ×3 (02:21→16:44)
[2022-10-12] MEDS: D5W/SOD CHL 0.45%/KCL 20MEQ 1,000 ML IV SCH ×3 (02:21→23:33)
[2022-10-12] MEDS: SODIUM CHLOR 0.9% PF (SALINE LOCK) 10ML VIAL/SYR IV SCH ×5 (02:23→21:05)
[2022-10-12 05:19] LABS: Potassium 3.8 mmol/L (3.5-5.1)
[2022-10-12 05:20] LABS: Hemoglobin 11.8 g/dL (13.5-17.5); Mean Corpuscular Hemoglobin 32.4 pg (28.0-32.0); Mean Corpuscular Hgb Conc. 33.6 g/dL (32.0-36.0); Mean Corpuscular Volume 96.3 fL (80.0-100.0); Red Blood Cells 3.63 10^6/uL (4.5-5.90); White Blood Cell 7.1 10^3/uL (4.4-10.8)
[2022-10-12 05:23] LABS: BUN/Creatinine Ratio 22.4 (10.0-20.0); Calcium 8.5 mg/dL (8.5-10.1)
[2022-10-12 05:25] LABS: Basophils % (manual) 0 (0.0-2.0); Blast Cells 0; Metamyelocytes % 0; Myelocytes % 0; Promyelocytes % 0; Reactive Lymphocytes 0
[2022-10-12] MEDS: METOCLOPRAMIDE HCL 5MG/ml INJ 2ml VIAL IV SCH ×3 (06:49→21:05)
[2022-10-12] MEDS ORDERED: GASTROGRAFIN 120 ML SOL ONE (07:49)
[2022-10-12] MEDS ORDERED: DEXTROSE (50%) 50ML SYRG IV SCH (08:15)
[2022-10-12] MEDS ORDERED: TPN PER PHARMACY 500 ML IV SCH (08:15)
[2022-10-12] MEDS: PANTOPRAZOLE 40 MG/10 ML VIAL INJ IV SCH (08:19)
[2022-10-12] MEDS: levoFLOXacin 500MG 100 ML IV SCH (08:20)
[2022-10-12] MEDS: ENOXAPARIN SOD 40 MG/0.4 ML SYRINGE SC SCH (08:23)
[2022-10-12] MEDS: ACCU-CHEK COMFORT CURVE STRIP VI SCH ×3 (08:24→23:58)
[2022-10-12 08:32] LABS: Albumin 2.4 g/dL (3.4-5.0); Bilirubin, Direct 0.4 mg/dL (0-0.2); Bilirubin, Total 0.9 mg/dL (0.2-1.0); Magnesium 2.3 mg/dL (1.6-2.6); Phosphorus 3.2 mg/dL (2.5-4.90); Total Protein 7.1 g/dL (6.4-8.2)
[2022-10-12 08:34] LABS: Band Neutrophils % (manual) 1; Eosinophils % (manual) 2 (0-7); Lymphocytes % (manual) 17 (10.0-50.0); Monocytes % (manual) 5 (0-12)
[2022-10-12] MEDS ORDERED: SODIUM CHLORIDE 0.9% 1,000 ML IV ONE (10:45)
[2022-10-12] MEDS ORDERED: ALBUMIN 25% 100 ML IV ONE (11:00)
[2022-10-12] MEDS: InsuLIN REG 1unit/0.01ml Soln (100units/ml) SC SCH ×3 (11:32→23:56)
[2022-10-12] MEDS ORDERED: LIDOCAINE 1% (LOCAL ANESTH.) PF 5ml SDV ID ONE (14:00)
[2022-10-12] MEDS ORDERED: CLINIMIX PER PHARMACY 0 ML IV SCH (20:00)
[2022-10-12] MEDS ORDERED: PPN PER PHARMACY IV NR ×7 (20:00)
[2022-10-12] MEDS: MORPHINE SULFATE INJ 2 MG/ml SYRG IV PRN (21:06)
[2022-10-13] VITALS (14 sets, daily range): BP systolic 97–123; BP diastolic 50–72
[2022-10-13] MEDS: metroNIDAZOLE 500MG/100ML 100 ML IV SCH (01:50)
[2022-10-13] MEDS: MORPHINE SULFATE INJ 2 MG/ml SYRG IV PRN ×5 (02:27→23:29)
[2022-10-13 05:24] LABS: Albumin 2.5 g/dL (3.4-5.0); Calcium 7.9 mg/dL (8.5-10.1); Magnesium 2.4 mg/dL (1.6-2.6); Potassium 3.6 mmol/L (3.5-5.1)
[2022-10-13 05:28] LABS: BUN/Creatinine Ratio 22.4 (10.0-20.0); Bilirubin, Total 0.7 mg/dL (0.2-1.0); Total Protein 6.3 g/dL (6.4-8.2)
[2022-10-13] MEDS: SODIUM CHLOR 0.9% PF (SALINE LOCK) 10ML VIAL/SYR IV SCH ×3 (06:31→13:12)
[2022-10-13] MEDS: ACCU-CHEK COMFORT CURVE STRIP VI SCH ×4 (06:31→23:29)
[2022-10-13] MEDS: METOCLOPRAMIDE HCL 5MG/ml INJ 2ml VIAL IV SCH ×3 (06:31→23:29)
[2022-10-13] MEDS: InsuLIN REG 1unit/0.01ml Soln (100units/ml) SC SCH ×4 (06:32→23:34)
[2022-10-13] MEDS: D5W/SOD CHL 0.45%/KCL 20MEQ 1,000 ML IV SCH (06:40)
[2022-10-13] MEDS ORDERED: D5W/SOD CHL 0.45%/KCL 20MEQ 1,000 ML IV SCH (09:15)
[2022-10-13] MEDS: PANTOPRAZOLE 40 MG/10 ML VIAL INJ IV SCH (09:59)
[2022-10-13] MEDS: ENOXAPARIN SOD 40 MG/0.4 ML SYRINGE SC SCH (10:00)
[2022-10-13] MEDS ORDERED: SODIUM PHOSP 40 MEQ in D5W 5% 250 ML IV ONE (12:00)
[2022-10-13] MEDS: SODIUM CHLORIDE 0.9% 1,000 ML IV SCH (14:39)
[2022-10-13] MEDS ORDERED: POTASSIUM PHOSPHATE IV NR ×11 (20:00)
[2022-10-13] MEDS ORDERED: TPN PER PHARMACY 0 ML IV SCH (20:00)
[2022-10-13] MEDS ORDERED: SODIUM PHOSPHATES IV NR ×11 (20:00)
[2022-10-13] MEDS ORDERED: FAT EMULSION IV NR ×11 (20:00)
[2022-10-13] MEDS ORDERED: [UNRECOGNIZED DRUG - OTHER] IV NR ×11 (20:00)
[2022-10-14] MEDS: SODIUM CHLOR 0.9% PF (SALINE LOCK) 10ML VIAL/SYR IV SCH ×7 (00:30→22:16)
[2022-10-14 05:00] VITALS: BP 104/65
[2022-10-14] MEDS: METOCLOPRAMIDE HCL 5MG/ml INJ 2ml VIAL IV SCH ×3 (06:48→22:16)
[2022-10-14] MEDS: InsuLIN REG 1unit/0.01ml Soln (100units/ml) SC SCH ×3 (06:49→17:44)
[2022-10-14] MEDS: ACCU-CHEK COMFORT CURVE STRIP VI SCH ×3 (06:50→17:44)
[2022-10-14] MEDS: SODIUM CHLORIDE 0.9% 1,000 ML IV SCH (06:50)
[2022-10-14 07:53] LABS: Potassium 3.6 mmol/L (3.5-5.1)
[2022-10-14 08:10] LABS: Albumin 2.5 g/dL (3.4-5.0); Bilirubin, Total 0.7 mg/dL (0.2-1.0); Magnesium 2.1 mg/dL (1.6-2.6); Phosphorus 2.6 mg/dL (2.5-4.90); Total Protein 6.3 g/dL (6.4-8.2)
[2022-10-14 08:58] VITALS: BP 128/86
[2022-10-14] MEDS: PANTOPRAZOLE 40 MG/10 ML VIAL INJ IV SCH (09:28)
[2022-10-14] MEDS: ENOXAPARIN SOD 40 MG/0.4 ML SYRINGE SC SCH (09:29)
[2022-10-14 12:45] VITALS: BP 116/77
[2022-10-14] MEDS: MORPHINE SULFATE INJ 2 MG/ml SYRG IV PRN ×2 (13:05→22:50)
[2022-10-14 17:00] VITALS: BP 113/74
[2022-10-14] MEDS ORDERED: POTASSIUM ACETATE IV NR ×11 (20:00)
[2022-10-14] MEDS ORDERED: SODIUM PHOSPHATES IV NR ×11 (20:00)
[2022-10-14] MEDS ORDERED: [UNRECOGNIZED DRUG - OTHER] IV NR ×11 (20:00)
[2022-10-14] MEDS ORDERED: FAT EMULSION IV NR ×11 (20:00)
[2022-10-14 20:10] VITALS: BP 123/78
[2022-10-14 22:00] VITALS: BP 123/78
[2022-10-14] MEDS: APIXABAN 5 MG TAB PO SCH (22:16)
[2022-10-14] MEDS: MELATONIN 5 MG TAB PO SCH (22:37)
[2022-10-15] MEDS: ACCU-CHEK COMFORT CURVE STRIP VI SCH ×4 (01:05→17:18)
[2022-10-15] MEDS: InsuLIN REG 1unit/0.01ml Soln (100units/ml) SC SCH ×4 (01:05→17:19)
[2022-10-15 05:00] VITALS: BP 151/52
[2022-10-15] MEDS: METOCLOPRAMIDE HCL 5MG/ml INJ 2ml VIAL IV SCH (06:30)
[2022-10-15] MEDS: SODIUM CHLOR 0.9% PF (SALINE LOCK) 10ML VIAL/SYR IV SCH ×5 (06:34→23:07)
[2022-10-15 07:05] LABS: Albumin 2.4 g/dL (3.4-5.0); Potassium 3.7 mmol/L (3.5-5.1)
[2022-10-15 07:08] LABS: BUN/Creatinine Ratio 21.5 (10.0-20.0); Bilirubin, Total 0.6 mg/dL (0.2-1.0); Phosphorus 2.8 mg/dL (2.5-4.90); Total Protein 6.4 g/dL (6.4-8.2)
[2022-10-15 09:37] VITALS: BP 154/73
[2022-10-15] MEDS: PANTOPRAZOLE 40 MG/10 ML VIAL INJ IV SCH (09:39)
[2022-10-15] MEDS: APIXABAN 5 MG TAB PO SCH ×2 (09:39→23:09)
[2022-10-15] MEDS: MORPHINE SULFATE INJ 2 MG/ml SYRG IV PRN (11:20)
[2022-10-15 13:19] VITALS: BP 107/62
[2022-10-15 17:00] VITALS: BP 117/76
[2022-10-15 22:00] VITALS: BP 123/80
[2022-10-15] MEDS: METOPROLOL TARTRATE 25 MG TAB PO SCH (23:09)
[2022-10-15] MEDS: MELATONIN 5 MG TAB PO SCH (23:14)
[2022-10-16] MEDS: ACCU-CHEK COMFORT CURVE STRIP VI SCH ×4 (00:08→18:00)
[2022-10-16 05:00] VITALS: BP 107/75
[2022-10-16] MEDS: MORPHINE SULFATE INJ 2 MG/ml SYRG IV PRN ×2 (05:13→09:48)
[2022-10-16] MEDS: SODIUM CHLOR 0.9% PF (SALINE LOCK) 10ML VIAL/SYR IV SCH ×5 (05:15→22:46)
[2022-10-16] MEDS: InsuLIN REG 1unit/0.01ml Soln (100units/ml) SC SCH ×5 (05:17→23:04)
[2022-10-16 08:58] LABS: BUN/Creatinine Ratio 20.5 (10.0-20.0); Calcium 8.4 mg/dL (8.5-10.1); Potassium 4.1 mmol/L (3.5-5.1)
[2022-10-16 09:00] VITALS: BP 103/72
[2022-10-16] MEDS: APIXABAN 5 MG TAB PO SCH ×2 (09:47→22:45)
[2022-10-16] MEDS: PANTOPRAZOLE 40 MG/10 ML VIAL INJ IV SCH (09:47)
[2022-10-16] MEDS: METOPROLOL TARTRATE 25 MG TAB PO SCH ×2 (09:48→22:45)
[2022-10-16 13:00] VITALS: BP 98/51
[2022-10-16 17:00] VITALS: BP 99/59
[2022-10-16 22:00] VITALS: BP 106/62
[2022-10-16] MEDS: MELATONIN 5 MG TAB PO SCH (22:46)
[2022-10-17 05:00] VITALS: BP 114/73
[2022-10-17] MEDS: ACCU-CHEK COMFORT CURVE STRIP VI SCH ×5 (05:07→23:49)
[2022-10-17] MEDS: SODIUM CHLOR 0.9% PF (SALINE LOCK) 10ML VIAL/SYR IV SCH ×5 (05:08→22:06)
[2022-10-17] MEDS: InsuLIN REG 1unit/0.01ml Soln (100units/ml) SC SCH ×4 (05:13→23:51)
[2022-10-17 09:00] VITALS: BP 136/83
[2022-10-17] MEDS: APIXABAN 5 MG TAB PO SCH ×2 (10:18→22:06)
[2022-10-17] MEDS: METOPROLOL TARTRATE 25 MG TAB PO SCH ×2 (10:19→22:06)
[2022-10-17] MEDS: PANTOPRAZOLE 40 MG TAB PO SCH (10:19)
[2022-10-17 13:00] VITALS: BP 102/56
[2022-10-17 17:00] VITALS: BP 103/67
[2022-10-17 22:00] VITALS: BP 120/76
[2022-10-17] MEDS: MELATONIN 5 MG TAB PO SCH (22:07)
[2022-10-18] MEDS: MORPHINE SULFATE INJ 2 MG/ml SYRG IV PRN (02:40)
[2022-10-18 05:00] VITALS: BP 105/73
[2022-10-18] MEDS: SODIUM CHLOR 0.9% PF (SALINE LOCK) 10ML VIAL/SYR IV SCH ×5 (05:28→22:00)
[2022-10-18] MEDS: ACCU-CHEK COMFORT CURVE STRIP VI SCH ×4 (05:28→23:50)
[2022-10-18] MEDS: InsuLIN REG 1unit/0.01ml Soln (100units/ml) SC SCH ×4 (05:32→23:54)
[2022-10-18 06:01] LABS: Hematocrit 33.4 % (41.0-53.0); Hemoglobin 11.1 g/dL (13.5-17.5); Mean Corpuscular Hemoglobin 31.8 pg (28.0-32.0); Mean Corpuscular Hgb Conc. 33.4 g/dL (32.0-36.0); Mean Corpuscular Volume 95.4 fL (80.0-100.0); Red Cell Distribution Width 15.6 % (11.8-14.3); White Blood Cell 3.7 10^3/uL (4.4-10.8)
[2022-10-18 06:30] LABS: Basophils % (manual) 0 (0.0-2.0); Blast Cells 0; Promyelocytes % 0; Reactive Lymphocytes 0
[2022-10-18 08:23] LABS: Band Neutrophils % (manual) 9; Eosinophils % (manual) 18 (0-7); Lymphocytes % (manual) 10 (10.0-50.0); Metamyelocytes % 2; Monocytes % (manual) 8 (0-12); Myelocytes % 3
[2022-10-18 09:00] VITALS: BP 109/71
[2022-10-18] MEDS: METOPROLOL TARTRATE 25 MG TAB PO SCH ×2 (10:15→21:59)
[2022-10-18] MEDS: PANTOPRAZOLE 40 MG TAB PO SCH (10:15)
[2022-10-18] MEDS: APIXABAN 5 MG TAB PO SCH ×2 (10:15→21:58)
[2022-10-18 13:00] VITALS: BP 107/78
[2022-10-18 17:00] VITALS: BP 113/70
[2022-10-18 22:00] VITALS: BP 130/81
[2022-10-18] MEDS: MELATONIN 5 MG TAB PO SCH (22:01)
[2022-10-19 05:00] VITALS: BP 119/82
[2022-10-19] MEDS: ACCU-CHEK COMFORT CURVE STRIP VI SCH ×3 (05:34→19:33)
[2022-10-19] MEDS: SODIUM CHLOR 0.9% PF (SALINE LOCK) 10ML VIAL/SYR IV SCH ×5 (05:34→22:00)
[2022-10-19] MEDS: InsuLIN REG 1unit/0.01ml Soln (100units/ml) SC SCH ×3 (05:36→18:00)
[2022-10-19 09:00] VITALS: BP 129/73
[2022-10-19] MEDS: APIXABAN 5 MG TAB PO SCH ×2 (10:30→22:42)
[2022-10-19] MEDS: METOPROLOL TARTRATE 25 MG TAB PO SCH ×2 (10:30→22:42)
[2022-10-19] MEDS: PANTOPRAZOLE 40 MG TAB PO SCH (10:31)
[2022-10-19] MEDS: MORPHINE SULFATE INJ 2 MG/ml SYRG IV PRN ×2 (15:22→23:56)
[2022-10-19 17:00] VITALS: BP 95/70
[2022-10-19 22:03] VITALS: BP 129/70
[2022-10-19] MEDS: MELATONIN 5 MG TAB PO SCH (22:43)
[2022-10-20] MEDS: ACCU-CHEK COMFORT CURVE STRIP VI SCH ×5 (00:17→23:43)
[2022-10-20] MEDS: MORPHINE SULFATE INJ 2 MG/ml SYRG IV PRN ×3 (04:28→18:22)
[2022-10-20 05:00] VITALS: BP 129/60
[2022-10-20] MEDS: SODIUM CHLOR 0.9% PF (SALINE LOCK) 10ML VIAL/SYR IV SCH ×5 (05:36→22:31)
[2022-10-20] MEDS: InsuLIN REG 1unit/0.01ml Soln (100units/ml) SC SCH ×5 (05:37→23:43)
[2022-10-20 09:00] VITALS: BP 105/67
[2022-10-20] MEDS: PANTOPRAZOLE 40 MG TAB PO SCH (10:33)
[2022-10-20] MEDS: APIXABAN 5 MG TAB PO SCH ×2 (10:33→22:30)
[2022-10-20] MEDS: METOPROLOL TARTRATE 25 MG TAB PO SCH ×2 (10:46→22:30)
[2022-10-20 13:00] VITALS: BP 112/67
[2022-10-20 17:00] VITALS: BP 103/68
[2022-10-20 20:00] VITALS: BP 120/69
[2022-10-20 22:00] VITALS: BP 120/69
[2022-10-20] MEDS: MELATONIN 5 MG TAB PO SCH (22:30)
[2022-10-21] MEDS: MORPHINE SULFATE INJ 2 MG/ml SYRG IV PRN ×2 (01:25→11:04)
[2022-10-21 05:00] VITALS: BP 104/61
[2022-10-21] MEDS: InsuLIN REG 1unit/0.01ml Soln (100units/ml) SC SCH ×3 (05:38→17:50)
[2022-10-21] MEDS: SODIUM CHLOR 0.9% PF (SALINE LOCK) 10ML VIAL/SYR IV SCH ×3 (05:38→17:51)
[2022-10-21] MEDS: ACCU-CHEK COMFORT CURVE STRIP VI SCH ×3 (05:38→17:50)
[2022-10-21 08:52] VITALS: BP 98/49
[2022-10-21] MEDS: PANTOPRAZOLE 40 MG TAB PO SCH (09:43)
[2022-10-21] MEDS: APIXABAN 5 MG TAB PO SCH ×2 (09:43→22:19)
[2022-10-21] MEDS: METOPROLOL TARTRATE 25 MG TAB PO SCH ×2 (09:44→22:00)
[2022-10-21 13:00] VITALS: BP 98/66
[2022-10-21 17:00] VITALS: BP 106/68
[2022-10-21 20:00] VITALS: BP 119/77
[2022-10-21 22:00] VITALS: BP 119/77
[2022-10-21] MEDS: MELATONIN 5 MG TAB PO SCH (22:00)
[2022-10-21] MEDS: DOCUSATE SOD 100 MG CAP PO PRN (22:19)
[2022-10-21] MEDS: ALPRAZolam 0.25 MG TAB PO PRN (22:21)
[2022-10-22] VITALS (7 sets, daily range): BP systolic 89–136; BP diastolic 49–82
[2022-10-22] MEDS: SODIUM CHLOR 0.9% PF (SALINE LOCK) 10ML VIAL/SYR IV SCH ×5 (00:32→14:00)
[2022-10-22] MEDS: ACCU-CHEK COMFORT CURVE STRIP VI SCH ×4 (00:55→17:14)
[2022-10-22] MEDS: ACETAMINOPHEN 325 MG TAB PO PRN (04:28)
[2022-10-22] MEDS: InsuLIN REG 1unit/0.01ml Soln (100units/ml) SC SCH ×4 (06:27→17:46)
[2022-10-22] MEDS: PANTOPRAZOLE 40 MG TAB PO SCH (10:32)
[2022-10-22] MEDS: APIXABAN 5 MG TAB PO SCH ×2 (10:32→22:46)
[2022-10-22] MEDS: METOPROLOL TARTRATE 25 MG TAB PO SCH (10:37)
[2022-10-22] MEDS: MELATONIN 5 MG TAB PO SCH (22:45)
[2022-10-22] MEDS: DOCUSATE SOD 100 MG CAP PO PRN (22:46)
[2022-10-22] MEDS: METOPROLOL TARTRATE 50 MG TAB PO SCH (22:46)
[2022-10-23] MEDS: SODIUM CHLOR 0.9% PF (SALINE LOCK) 10ML VIAL/SYR IV SCH ×7 (00:23→22:39)
[2022-10-23] MEDS: ACCU-CHEK COMFORT CURVE STRIP VI SCH ×4 (00:25→17:06)
[2022-10-23] MEDS: ACETAMINOPHEN 325 MG TAB PO PRN (04:07)
[2022-10-23 05:00] VITALS: BP 107/69
[2022-10-23] MEDS: InsuLIN REG 1unit/0.01ml Soln (100units/ml) SC SCH ×4 (06:00→17:05)
[2022-10-23 06:13] LABS: Hematocrit 32.4 % (41.0-53.0); Mean Corpuscular Hemoglobin 31.8 pg (28.0-32.0); Mean Corpuscular Volume 93.5 fL (80.0-100.0); Red Blood Cells 3.46 10^6/uL (4.5-5.90); Red Cell Distribution Width 15.8 % (11.8-14.3); White Blood Cell 4.2 10^3/uL (4.4-10.8)
[2022-10-23 06:29] LABS: Band Neutrophils % (manual) 0
[2022-10-23 06:30] LABS: Basophils % (manual) 0 (0.0-2.0); Blast Cells 0; Metamyelocytes % 0; Myelocytes % 0; Promyelocytes % 0; Reactive Lymphocytes 0
[2022-10-23 07:37] LABS: Potassium 4.2 mmol/L (3.5-5.1)
[2022-10-23 07:42] LABS: Albumin 2.6 g/dL (3.4-5.0); BUN/Creatinine Ratio 17.7 (10.0-20.0); Calcium 8.5 mg/dL (8.5-10.1); Total Protein 7.3 g/dL (6.4-8.2)
[2022-10-23 08:00] VITALS: BP 87/60
[2022-10-23] MEDS: METOPROLOL TARTRATE 50 MG TAB PO SCH ×2 (10:00→22:38)
[2022-10-23] MEDS: PANTOPRAZOLE 40 MG TAB PO SCH (10:04)
[2022-10-23] MEDS: APIXABAN 5 MG TAB PO SCH ×2 (10:04→22:38)
[2022-10-23 12:00] VITALS: BP 97/64
[2022-10-23 12:30] VITALS: BP 97/64
[2022-10-23 12:32] LABS: Eosinophils % (manual) 15 (0-7); Lymphocytes % (manual) 7 (10.0-50.0); Monocytes % (manual) 7 (0-12)
[2022-10-23] MEDS: DOCUSATE SOD 100 MG CAP PO PRN (14:17)
[2022-10-23 16:00] VITALS: BP 126/84
[2022-10-23 22:00] VITALS: BP 118/83
[2022-10-23] MEDS: MELATONIN 5 MG TAB PO SCH (22:38)
[2022-10-24] MEDS: ACCU-CHEK COMFORT CURVE STRIP VI SCH ×4 (00:26→18:00)
[2022-10-24 05:00] VITALS: BP 102/70
[2022-10-24] MEDS: InsuLIN REG 1unit/0.01ml Soln (100units/ml) SC SCH ×4 (06:00→18:00)
[2022-10-24] MEDS: SODIUM CHLOR 0.9% PF (SALINE LOCK) 10ML VIAL/SYR IV SCH ×5 (06:24→22:16)
[2022-10-24 09:00] VITALS: BP 94/62
[2022-10-24 09:05] VITALS: BP 102/90
[2022-10-24] MEDS: PANTOPRAZOLE 40 MG TAB PO SCH (09:09)
[2022-10-24] MEDS: APIXABAN 5 MG TAB PO SCH ×2 (09:09→22:16)
[2022-10-24] MEDS: ALPRAZolam 0.25 MG TAB PO PRN (10:30)
[2022-10-24] MEDS: METOPROLOL TARTRATE 50 MG TAB PO SCH ×2 (10:31→22:16)
[2022-10-24 13:00] VITALS: BP 118/78
[2022-10-24] MEDS: ACETAMINOPHEN 325 MG TAB PO PRN (15:48)
[2022-10-24 17:00] VITALS: BP 109/71
[2022-10-24] MEDS: diphenhdrAMINE HCL 25 MG CAP PO PRN (17:10)
[2022-10-24 22:00] VITALS: BP 107/67
[2022-10-24] MEDS: MELATONIN 5 MG TAB PO SCH (22:16)
[2022-10-25 05:00] VITALS: BP 108/57
[2022-10-25] MEDS: SODIUM CHLOR 0.9% PF (SALINE LOCK) 10ML VIAL/SYR IV SCH ×5 (05:58→21:40)
[2022-10-25] MEDS: InsuLIN REG 1unit/0.01ml Soln (100units/ml) SC SCH ×4 (05:59→18:00)
[2022-10-25] MEDS: ACCU-CHEK COMFORT CURVE STRIP VI SCH ×4 (05:59→18:00)
[2022-10-25] MEDS: PANTOPRAZOLE 40 MG TAB PO SCH (08:31)
[2022-10-25] MEDS: APIXABAN 5 MG TAB PO SCH ×2 (08:32→21:39)
[2022-10-25 09:00] VITALS: BP 116/58
[2022-10-25] MEDS: diphenhdrAMINE HCL 25 MG CAP PO PRN (11:52)
[2022-10-25] MEDS: METOPROLOL TARTRATE 50 MG TAB PO SCH ×2 (11:52→21:39)
[2022-10-25 13:00] VITALS: BP 113/78
[2022-10-25] MEDS: ACETAMINOPHEN 325 MG TAB PO PRN (16:41)
[2022-10-25 17:00] VITALS: BP 106/71
[2022-10-25] MEDS: MELATONIN 5 MG TAB PO SCH (21:37)
[2022-10-25 22:00] VITALS: BP 104/70
[2022-10-26] MEDS: ACCU-CHEK COMFORT CURVE STRIP VI SCH ×5 (00:19→23:35)
[2022-10-26 05:00] VITALS: BP 128/74
[2022-10-26] MEDS: SODIUM CHLOR 0.9% PF (SALINE LOCK) 10ML VIAL/SYR IV SCH ×3 (05:56→22:10)
[2022-10-26] MEDS: InsuLIN REG 1unit/0.01ml Soln (100units/ml) SC SCH ×5 (05:57→23:35)
[2022-10-26 09:00] VITALS: BP 107/67
[2022-10-26] MEDS: PANTOPRAZOLE 40 MG TAB PO SCH (11:46)
[2022-10-26] MEDS: METOPROLOL TARTRATE 50 MG TAB PO SCH ×2 (11:46→22:00)
[2022-10-26] MEDS: APIXABAN 5 MG TAB PO SCH ×2 (11:47→22:10)
[2022-10-26 13:00] VITALS: BP 110/73
[2022-10-26 17:00] VITALS: BP 101/73
[2022-10-26] MEDS: HYDROcodone-ACET 5/325MG TAB PO PRN (18:16)
[2022-10-26 22:00] VITALS: BP 104/69
[2022-10-26] MEDS: MELATONIN 5 MG TAB PO SCH (22:10)
[2022-10-27 05:00] VITALS: BP 117/73
[2022-10-27] MEDS: InsuLIN REG 1unit/0.01ml Soln (100units/ml) SC SCH ×3 (06:00→17:38)
[2022-10-27] MEDS: ACCU-CHEK COMFORT CURVE STRIP VI SCH ×3 (06:14→17:37)
[2022-10-27 08:00] VITALS: BP 99/60
[2022-10-27] MEDS: PANTOPRAZOLE 40 MG TAB PO SCH (09:33)
[2022-10-27] MEDS: HYDROcodone-ACET 5/325MG TAB PO PRN ×2 (09:33→17:32)
[2022-10-27] MEDS: APIXABAN 5 MG TAB PO SCH ×2 (09:33→22:02)
[2022-10-27] MEDS: METOPROLOL TARTRATE 50 MG TAB PO SCH ×2 (09:34→22:00)
[2022-10-27] MEDS: SODIUM CHLOR 0.9% PF (SALINE LOCK) 10ML VIAL/SYR IV SCH ×2 (09:35→22:02)
[2022-10-27 12:00] VITALS: BP 104/65
[2022-10-27] MEDS ORDERED: POLYETHYLENE GLYCOL 17 GM PWDR PO ONE (12:00)
[2022-10-27 16:00] VITALS: BP 102/63
[2022-10-27 20:00] VITALS: BP 92/63
[2022-10-27 22:00] VITALS: BP 92/63
[2022-10-27] MEDS: MELATONIN 5 MG TAB PO SCH (22:03)
[2022-10-28] MEDS: HYDROcodone-ACET 5/325MG TAB PO PRN ×3 (00:34→21:54)
[2022-10-28] MEDS: ACCU-CHEK COMFORT CURVE STRIP VI SCH ×4 (00:37→18:10)
[2022-10-28 05:00] VITALS: BP 107/72
[2022-10-28] MEDS: InsuLIN REG 1unit/0.01ml Soln (100units/ml) SC SCH ×4 (06:00→18:00)
[2022-10-28 08:00] VITALS: BP 115/79
[2022-10-28] MEDS: SODIUM CHLOR 0.9% PF (SALINE LOCK) 10ML VIAL/SYR IV SCH (09:28)
[2022-10-28] MEDS: POLYETHYLENE GLYCOL 17 GM PWDR PO SCH (09:28)
[2022-10-28] MEDS: PANTOPRAZOLE 40 MG TAB PO SCH (09:28)
[2022-10-28] MEDS: APIXABAN 5 MG TAB PO SCH ×2 (09:28→21:54)
[2022-10-28] MEDS: METOPROLOL TARTRATE 50 MG TAB PO SCH ×2 (09:29→21:54)
[2022-10-28 12:00] VITALS: BP 103/59
[2022-10-28 16:00] VITALS: BP 97/64
[2022-10-28 22:00] VITALS: BP 103/61
[2022-10-28] MEDS: MELATONIN 5 MG TAB PO SCH (22:00)
[2022-10-29 05:00] VITALS: BP 103/70
[2022-10-29 09:00] VITALS: BP 116/78
[2022-10-29] MEDS: METOPROLOL TARTRATE 50 MG TAB PO SCH ×2 (10:15→23:28)
[2022-10-29] MEDS: HYDROcodone-ACET 5/325MG TAB PO PRN ×2 (10:16→23:33)
[2022-10-29] MEDS: POLYETHYLENE GLYCOL 17 GM PWDR PO SCH (10:16)
[2022-10-29] MEDS: PANTOPRAZOLE 40 MG TAB PO SCH (10:16)
[2022-10-29] MEDS: SODIUM CHLOR 0.9% PF (SALINE LOCK) 10ML VIAL/SYR IV SCH ×3 (10:16→22:00)
[2022-10-29] MEDS: APIXABAN 5 MG TAB PO SCH ×2 (10:16→23:28)
[2022-10-29] MEDS: InsuLIN REG 1unit/0.01ml Soln (100units/ml) SC SCH ×2 (12:00→16:55)
[2022-10-29] MEDS: ACCU-CHEK COMFORT CURVE STRIP VI SCH ×2 (12:12→16:50)
[2022-10-29 17:00] VITALS: BP 112/75
[2022-10-29 20:00] VITALS: BP 113/76
[2022-10-29 22:00] VITALS: BP 113/76
[2022-10-29] MEDS: MELATONIN 5 MG TAB PO SCH (22:00)
[2022-10-30 05:00] VITALS: BP 123/77
[2022-10-30] MEDS: InsuLIN REG 1unit/0.01ml Soln (100units/ml) SC SCH ×4 (06:00→18:00)
[2022-10-30] MEDS: ACCU-CHEK COMFORT CURVE STRIP VI SCH ×4 (06:00→18:00)
[2022-10-30 08:00] VITALS: BP 93/48
[2022-10-30 09:00] VITALS: BP 112/58
[2022-10-30] MEDS: PANTOPRAZOLE 40 MG TAB PO SCH (09:44)
[2022-10-30] MEDS: APIXABAN 5 MG TAB PO SCH ×2 (09:44→22:27)
[2022-10-30] MEDS: HYDROcodone-ACET 5/325MG TAB PO PRN (09:44)
[2022-10-30] MEDS: METOPROLOL TARTRATE 50 MG TAB PO SCH ×2 (09:51→22:26)
[2022-10-30] MEDS: POLYETHYLENE GLYCOL 17 GM PWDR PO SCH (09:52)
[2022-10-30] MEDS: SODIUM CHLOR 0.9% PF (SALINE LOCK) 10ML VIAL/SYR IV SCH ×2 (10:00→22:27)
[2022-10-30 13:02] VITALS: BP 115/75
[2022-10-30 17:21] VITALS: BP 119/80
[2022-10-30 22:00] VITALS: BP 120/78
[2022-10-30] MEDS: MELATONIN 5 MG TAB PO SCH (22:25)
[2022-10-31] MEDS: ACCU-CHEK COMFORT CURVE STRIP VI SCH ×5 (01:10→23:26)
[2022-10-31 04:59] VITALS: BP 125/76
[2022-10-31] MEDS: InsuLIN REG 1unit/0.01ml Soln (100units/ml) SC SCH ×5 (06:00→23:25)
[2022-10-31] MEDS: HYDROcodone-ACET 5/325MG TAB PO PRN ×3 (06:24→18:23)
[2022-10-31 08:00] VITALS: BP 106/64
[2022-10-31 09:04] VITALS: BP 106/64
[2022-10-31] MEDS: POLYETHYLENE GLYCOL 17 GM PWDR PO SCH (10:00)
[2022-10-31] MEDS: APIXABAN 5 MG TAB PO SCH ×2 (10:14→22:12)
[2022-10-31] MEDS: PANTOPRAZOLE 40 MG TAB PO SCH (10:14)
[2022-10-31] MEDS: METOPROLOL TARTRATE 50 MG TAB PO SCH ×2 (10:14→22:11)
[2022-10-31] MEDS: SODIUM CHLOR 0.9% PF (SALINE LOCK) 10ML VIAL/SYR IV SCH ×2 (10:18→22:12)
[2022-10-31 13:56] VITALS: BP 103/70
[2022-10-31 22:00] VITALS: BP 116/74
[2022-10-31] MEDS: MELATONIN 5 MG TAB PO SCH (22:12)
[2022-11-01 05:00] VITALS: BP 97/64
[2022-11-01 05:52] LABS: BUN/Creatinine Ratio 17.3 (10.0-20.0); Calcium 8.9 mg/dL (8.5-10.1); Potassium 4.2 mmol/L (3.5-5.1)
[2022-11-01] MEDS: InsuLIN REG 1unit/0.01ml Soln (100units/ml) SC SCH ×4 (06:00→23:52)
[2022-11-01 06:25] LABS: Basophils # (auto) 0 10 ^3/uL (0-0.2); Basophils % (auto) 0.5 % (0.0-2.0); Eosinophils # (auto) 0 10 ^3/uL (0-0.8); Eosinophils % (auto) 0.6 % (0.0-7.0); Hematocrit 36.1 % (41.0-53.0); Lymphocytes % (auto) 21.9 % (10.0-50.0); Mean Corpuscular Hemoglobin 31.6 pg (28.0-32.0); Mean Corpuscular Hgb Conc. 33.2 g/dL (32.0-36.0); Mean Corpuscular Volume 95.2 fL (80.0-100.0); Monocytes # (auto) 0.5 10 ^3/uL (0-1.3); Monocytes % (auto) 12.2 % (0.0-12.0); Neutrophils # (auto) 2.8 10 ^3/uL (1.6-8.6); Neutrophils % (auto) 64.8 % (37.0-80.0); Nucleated Red Blood Cells % 0.3 %; Red Blood Cells 3.79 10^6/uL (4.5-5.90); Red Cell Distribution Width 15.9 % (11.8-14.3); White Blood Cell 4.3 10^3/uL (4.4-10.8)
[2022-11-01] MEDS: ACCU-CHEK COMFORT CURVE STRIP VI SCH ×4 (06:36→23:52)
[2022-11-01 08:00] VITALS: BP 102/65
[2022-11-01] MEDS: APIXABAN 5 MG TAB PO SCH ×2 (08:58→21:23)
[2022-11-01] MEDS: PANTOPRAZOLE 40 MG TAB PO SCH (08:58)
[2022-11-01] MEDS: METOPROLOL TARTRATE 50 MG TAB PO SCH ×2 (08:59→21:23)
[2022-11-01 09:00] VITALS: BP 102/65
[2022-11-01] MEDS ORDERED: SODIUM CHLORIDE 0.9% 1,000 ML IV SCH (09:45)
[2022-11-01] MEDS: POLYETHYLENE GLYCOL 17 GM PWDR PO SCH (10:00)
[2022-11-01] MEDS: HYDROcodone-ACET 5/325MG TAB PO PRN (10:39)
[2022-11-01] MEDS: SODIUM CHLOR 0.9% PF (SALINE LOCK) 10ML VIAL/SYR IV SCH ×2 (10:39→21:23)
[2022-11-01 13:00] VITALS: BP 97/56
[2022-11-01 17:00] VITALS: BP 119/77
[2022-11-01] MEDS ORDERED: FUROSEMIDE 20 MG/2 ML VIAL IV ONE (19:00)
[2022-11-01] MEDS: MELATONIN 5 MG TAB PO SCH (21:23)
[2022-11-01 22:00] VITALS: BP 135/79
[2022-11-02 05:00] VITALS: BP 121/73
[2022-11-02] MEDS: ACCU-CHEK COMFORT CURVE STRIP VI SCH ×4 (05:30→23:22)
[2022-11-02] MEDS: InsuLIN REG 1unit/0.01ml Soln (100units/ml) SC SCH ×4 (05:31→23:30)
[2022-11-02 06:25] LABS: Calcium 8.9 mg/dL (8.5-10.1); Potassium 3.5 mmol/L (3.5-5.1)
[2022-11-02 06:26] LABS: BUN/Creatinine Ratio 17.6 (10.0-20.0)
[2022-11-02 08:57] VITALS: BP 100/73
[2022-11-02] MEDS: HYDROcodone-ACET 5/325MG TAB PO PRN ×2 (09:14→18:53)
[2022-11-02] MEDS: PANTOPRAZOLE 40 MG TAB PO SCH (09:28)
[2022-11-02] MEDS: APIXABAN 5 MG TAB PO SCH ×2 (09:28→23:17)
[2022-11-02] MEDS: POLYETHYLENE GLYCOL 17 GM PWDR PO SCH (09:28)
[2022-11-02] MEDS: METOPROLOL TARTRATE 50 MG TAB PO SCH ×2 (09:29→23:21)
[2022-11-02] MEDS ORDERED: FUROSEMIDE 20 MG/2 ML VIAL IV SCH (10:00)
[2022-11-02] MEDS: SODIUM CHLOR 0.9% PF (SALINE LOCK) 10ML VIAL/SYR IV SCH ×2 (12:03→23:17)
[2022-11-02 13:09] VITALS: BP 94/58
[2022-11-02 16:37] VITALS: BP 103/71
[2022-11-02 22:00] VITALS: BP 101/66
[2022-11-02] MEDS: MELATONIN 5 MG TAB PO SCH (23:17)
[2022-11-03 05:25] VITALS: BP 124/80
[2022-11-03] MEDS: ACCU-CHEK COMFORT CURVE STRIP VI SCH ×4 (05:31→22:53)
[2022-11-03] MEDS: InsuLIN REG 1unit/0.01ml Soln (100units/ml) SC SCH ×4 (05:31→23:03)
[2022-11-03 08:30] VITALS: BP 91/54
[2022-11-03] MEDS: HYDROcodone-ACET 5/325MG TAB PO PRN ×2 (08:37→15:27)
[2022-11-03 09:16] VITALS: BP 91/54
[2022-11-03] MEDS: METOPROLOL TARTRATE 50 MG TAB PO SCH ×2 (10:00→23:03)
[2022-11-03] MEDS ORDERED: DOCUSATE SOD 100 MG CAP PO PRN (10:15)
[2022-11-03] MEDS: POLYETHYLENE GLYCOL 17 GM PWDR PO SCH (10:18)
[2022-11-03] MEDS: PANTOPRAZOLE 40 MG TAB PO SCH (10:18)
[2022-11-03] MEDS: SODIUM CHLOR 0.9% PF (SALINE LOCK) 10ML VIAL/SYR IV SCH ×2 (10:22→22:54)
[2022-11-03] MEDS: APIXABAN 2.5 MG TAB PO SCH ×2 (12:02→22:54)
[2022-11-03 14:42] VITALS: BP 109/66
[2022-11-03 17:07] VITALS: BP 110/68
[2022-11-03 22:00] VITALS: BP 110/76
[2022-11-03] MEDS: MELATONIN 5 MG TAB PO SCH (22:55)
[2022-11-04] MEDS: HYDROcodone-ACET 5/325MG TAB PO PRN ×3 (03:30→17:37)
[2022-11-04 05:00] VITALS: BP 97/52
[2022-11-04] MEDS: InsuLIN REG 1unit/0.01ml Soln (100units/ml) SC SCH ×4 (06:00→23:15)
[2022-11-04] MEDS: ACCU-CHEK COMFORT CURVE STRIP VI SCH ×4 (06:14→23:16)
[2022-11-04 06:39] LABS: Potassium 3.8 mmol/L (3.5-5.1)
[2022-11-04 06:43] LABS: BUN/Creatinine Ratio 15.8 (10.0-20.0); Calcium 8.9 mg/dL (8.5-10.1)
[2022-11-04 08:30] VITALS: BP 111/70
[2022-11-04] MEDS: POLYETHYLENE GLYCOL 17 GM PWDR PO SCH (09:45)
[2022-11-04] MEDS: SODIUM CHLOR 0.9% PF (SALINE LOCK) 10ML VIAL/SYR IV SCH ×2 (09:45→22:09)
[2022-11-04] MEDS: APIXABAN 2.5 MG TAB PO SCH ×2 (09:46→22:08)
[2022-11-04] MEDS: PANTOPRAZOLE 40 MG TAB PO SCH (09:46)
[2022-11-04] MEDS: METOPROLOL TARTRATE 50 MG TAB PO SCH ×2 (09:47→22:08)
[2022-11-04 16:59] VITALS: BP 114/79
[2022-11-04 22:00] VITALS: BP 113/73
[2022-11-04] MEDS: MELATONIN 5 MG TAB PO SCH (22:08)
[2022-11-04 23:03] VITALS: BP 113/73
[2022-11-05] MEDS: HYDROcodone-ACET 5/325MG TAB PO PRN ×3 (00:47→23:44)
[2022-11-05 05:00] VITALS: BP 103/71
[2022-11-05] MEDS: InsuLIN REG 1unit/0.01ml Soln (100units/ml) SC SCH ×4 (06:00→23:45)
[2022-11-05] MEDS: ACCU-CHEK COMFORT CURVE STRIP VI SCH ×4 (06:04→23:44)
[2022-11-05 08:00] VITALS: BP 113/75
[2022-11-05] MEDS: APIXABAN 2.5 MG TAB PO SCH ×2 (09:42→23:43)
[2022-11-05] MEDS: POLYETHYLENE GLYCOL 17 GM PWDR PO SCH (09:42)
[2022-11-05] MEDS: METOPROLOL TARTRATE 50 MG TAB PO SCH ×2 (09:43→23:44)
[2022-11-05] MEDS: SODIUM CHLOR 0.9% PF (SALINE LOCK) 10ML VIAL/SYR IV SCH ×2 (09:43→23:45)
[2022-11-05] MEDS: PANTOPRAZOLE 40 MG TAB PO SCH (09:44)
[2022-11-05 12:00] VITALS: BP 98/65
[2022-11-05 16:00] VITALS: BP 111/76
[2022-11-05 22:00] VITALS: BP 113/58
[2022-11-05] MEDS: MELATONIN 5 MG TAB PO SCH (23:43)
[2022-11-06 05:00] VITALS: BP 116/74
[2022-11-06] MEDS: InsuLIN REG 1unit/0.01ml Soln (100units/ml) SC SCH ×2 (06:00→11:29)
[2022-11-06] MEDS: ACCU-CHEK COMFORT CURVE STRIP VI SCH ×2 (06:34→11:27)
[2022-11-06 08:00] VITALS: BP 113/61
[2022-11-06] MEDS: APIXABAN 2.5 MG TAB PO SCH (08:59)
[2022-11-06] MEDS: HYDROcodone-ACET 5/325MG TAB PO PRN ×2 (08:59→18:36)
[2022-11-06] MEDS: PANTOPRAZOLE 40 MG TAB PO SCH (09:00)
[2022-11-06] MEDS: METOPROLOL TARTRATE 50 MG TAB PO SCH ×2 (09:00→21:59)
[2022-11-06] MEDS: SODIUM CHLOR 0.9% PF (SALINE LOCK) 10ML VIAL/SYR IV SCH ×2 (09:01→22:03)
[2022-11-06] MEDS: POLYETHYLENE GLYCOL 17 GM PWDR PO SCH (09:01)
[2022-11-06 12:00] VITALS: BP 100/59
[2022-11-06 16:00] VITALS: BP 116/70
[2022-11-06] MEDS: MELATONIN 5 MG TAB PO SCH (21:58)
[2022-11-06] MEDS: APIXABAN 5 MG TAB PO SCH (21:58)
[2022-11-06 22:00] VITALS: BP 104/66
[2022-11-07 05:00] VITALS: BP 104/68
[2022-11-07 05:22] LABS: Basophils # (auto) 0 10 ^3/uL (0-0.2); Basophils % (auto) 0.5 % (0.0-2.0); Eosinophils # (auto) 0 10 ^3/uL (0-0.8); Hematocrit 34.4 % (41.0-53.0); Hemoglobin 11.7 g/dL (13.5-17.5); Lymphocytes # (auto) 0.8 10 ^3/uL (0.4-5.4); Lymphocytes % (auto) 19.9 % (10.0-50.0); Mean Corpuscular Hemoglobin 31.8 pg (28.0-32.0); Mean Corpuscular Hgb Conc. 34.1 g/dL (32.0-36.0); Mean Corpuscular Volume 93.3 fL (80.0-100.0); Monocytes # (auto) 0.5 10 ^3/uL (0-1.3); Monocytes % (auto) 12.8 % (0.0-12.0); Neutrophils # (auto) 2.8 10 ^3/uL (1.6-8.6); Neutrophils % (auto) 65.8 % (37.0-80.0); Nucleated Red Blood Cells % 0.2 %; Red Blood Cells 3.69 10^6/uL (4.5-5.90); Red Cell Distribution Width 15.3 % (11.8-14.3); White Blood Cell 4.3 10^3/uL (4.4-10.8)
[2022-11-07 05:47] LABS: Potassium 3.9 mmol/L (3.5-5.1)
[2022-11-07 05:53] LABS: BUN/Creatinine Ratio 20.8 (10.0-20.0)
[2022-11-07] MEDS: HYDROcodone-ACET 5/325MG TAB PO PRN ×2 (06:39→15:33)
[2022-11-07 09:19] VITALS: BP 106/64
[2022-11-07] MEDS: PANTOPRAZOLE 40 MG TAB PO SCH (09:19)
[2022-11-07] MEDS: APIXABAN 5 MG TAB PO SCH ×2 (09:19→22:10)
[2022-11-07] MEDS: METOPROLOL TARTRATE 50 MG TAB PO SCH ×2 (09:20→22:10)
[2022-11-07] MEDS: SODIUM CHLOR 0.9% PF (SALINE LOCK) 10ML VIAL/SYR IV SCH ×2 (09:20→22:10)
[2022-11-07] MEDS: POLYETHYLENE GLYCOL 17 GM PWDR PO SCH (09:23)
[2022-11-07 13:00] VITALS: BP 107/69
[2022-11-07 17:00] VITALS: BP 116/72
[2022-11-07 22:00] VITALS: BP 126/72
[2022-11-07] MEDS: MELATONIN 5 MG TAB PO SCH (22:10)
[2022-11-08] MEDS: HYDROcodone-ACET 5/325MG TAB PO PRN ×3 (04:29→21:28)
[2022-11-08 05:00] VITALS: BP 117/69
[2022-11-08 09:00] VITALS: BP 95/66
[2022-11-08] MEDS: METOPROLOL TARTRATE 50 MG TAB PO SCH ×2 (10:00→21:29)
[2022-11-08] MEDS: POLYETHYLENE GLYCOL 17 GM PWDR PO SCH (10:00)
[2022-11-08] MEDS: SODIUM CHLOR 0.9% PF (SALINE LOCK) 10ML VIAL/SYR IV SCH ×2 (10:00→21:29)
[2022-11-08] MEDS: APIXABAN 5 MG TAB PO SCH ×2 (10:11→21:28)
[2022-11-08] MEDS: PANTOPRAZOLE 40 MG TAB PO SCH (10:11)
[2022-11-08 13:00] VITALS: BP 107/71
[2022-11-08 17:00] VITALS: BP 89/57
[2022-11-08] MEDS: MELATONIN 5 MG TAB PO SCH (21:29)
[2022-11-09] MEDS: HYDROcodone-ACET 5/325MG TAB PO PRN ×3 (04:01→18:56)
[2022-11-09 05:00] VITALS: BP 118/77
[2022-11-09] MEDS: diphenhdrAMINE HCL 25 MG CAP PO PRN (05:58)
[2022-11-09 08:36] VITALS: BP 118/80
[2022-11-09] MEDS: POLYETHYLENE GLYCOL 17 GM PWDR PO SCH (10:00)
[2022-11-09] MEDS: APIXABAN 5 MG TAB PO SCH ×2 (10:12→22:35)
[2022-11-09] MEDS: PANTOPRAZOLE 40 MG TAB PO SCH (10:12)
[2022-11-09] MEDS: METOPROLOL TARTRATE 50 MG TAB PO SCH ×2 (10:12→22:00)
[2022-11-09] MEDS: SODIUM CHLOR 0.9% PF (SALINE LOCK) 10ML VIAL/SYR IV SCH ×2 (10:13→22:35)
[2022-11-09 12:46] VITALS: BP 106/69
[2022-11-09 16:50] VITALS: BP 103/68
[2022-11-09 22:00] VITALS: BP 100/66
[2022-11-09] MEDS: MELATONIN 5 MG TAB PO SCH (22:35)
[2022-11-10 05:00] VITALS: BP 114/78
[2022-11-10] MEDS: HYDROcodone-ACET 5/325MG TAB PO PRN ×3 (05:20→18:19)
[2022-11-10 08:00] VITALS: BP 113/72
[2022-11-10] MEDS: APIXABAN 5 MG TAB PO SCH ×2 (09:44→22:34)
[2022-11-10] MEDS: PANTOPRAZOLE 40 MG TAB PO SCH (09:44)
[2022-11-10] MEDS: METOPROLOL TARTRATE 50 MG TAB PO SCH ×2 (09:46→22:00)
[2022-11-10] MEDS: POLYETHYLENE GLYCOL 17 GM PWDR PO SCH (09:49)
[2022-11-10] MEDS: SODIUM CHLOR 0.9% PF (SALINE LOCK) 10ML VIAL/SYR IV SCH ×2 (11:16→22:00)
[2022-11-10 12:00] VITALS: BP 102/73
[2022-11-10 16:00] VITALS: BP 106/71
[2022-11-10 22:00] VITALS: BP 108/68
[2022-11-10] MEDS: MELATONIN 5 MG TAB PO SCH (22:34)
[2022-11-11] MEDS: HYDROcodone-ACET 5/325MG TAB PO PRN ×3 (01:39→17:33)
[2022-11-11 05:00] VITALS: BP 112/73
[2022-11-11 09:08] VITALS: BP 104/63
[2022-11-11] MEDS: POLYETHYLENE GLYCOL 17 GM PWDR PO SCH (10:00)
[2022-11-11] MEDS: METOPROLOL TARTRATE 50 MG TAB PO SCH (10:00)
[2022-11-11] MEDS: PANTOPRAZOLE 40 MG TAB PO SCH (10:10)
[2022-11-11] MEDS: SODIUM CHLOR 0.9% PF (SALINE LOCK) 10ML VIAL/SYR IV SCH (10:10)
[2022-11-11] MEDS: APIXABAN 5 MG TAB PO SCH (10:11)
[2022-11-11 13:15] VITALS: BP 123/80
[2022-11-11 16:40] VITALS: BP 135/90
== END 2022-11-11 19:00 | DRG 535 ==
LOC: EDBD 19:36 → ER 19:36 → TELE 09-26 00:27 → TELE-WESTW 09-26 14:24 → DOU IN ICU 10-11 21:18 → CENTRAL 10-13 12:20
PROVIDERS: ADMIT Nurse Practitioner Family; ATTEND Nurse Practitioner Acute Care
PROC: 5A2204Z Restoration of Cardiac Rhythm, Single (ICD-10-PCS; 2022-09-25)
PROC: 05HC33Z Insertion of Infusion Device into Left Basilic Vein, Percutaneous Approach (ICD-10-PCS; 2022-09-26)
PROC: B54NZZA Ultrasonography of Left Upper Extremity Veins, Guidance (ICD-10-PCS; 2022-09-26)
PROC: 0D9670Z Drainage of Stomach with Drainage Device, Via Natural or Artificial Opening (ICD-10-PCS; 2022-10-11)
PROC: 02HV33Z Insertion of Infusion Device into Superior Vena Cava, Percutaneous Approach (ICD-10-PCS; principal; 2022-10-12)
PROC: B548ZZA Ultrasonography of Superior Vena Cava, Guidance (ICD-10-PCS; 2022-10-12)
DX: S72.114A Nondisplaced fracture of greater trochanter of right femur, initial encounter for closed fracture (principal); E43 Unspecified severe protein-calorie malnutrition; I21.A1 Myocardial infarction type 2; N18.6 End stage renal disease; N17.0 Acute kidney failure with tubular necrosis; M97.01XA Periprosthetic fracture around internal prosthetic right hip joint, initial encounter; I13.2 Hypertensive heart and chronic kidney disease with heart failure and with stage 5 chronic kidney disease, or end stage renal disease; J44.1 Chronic obstructive pulmonary disease with (acute) exacerbation; E87.1 Hypo-osmolality and hyponatremia; K56.7 Ileus, unspecified; I48.20 Chronic atrial fibrillation, unspecified; M62.82 Rhabdomyolysis; Z68.41 Body mass index [BMI] 40.0-44.9, adult; L03.90 Cellulitis, unspecified; Z20.822 Contact with and (suspected) exposure to COVID-19; I50.9 Heart failure, unspecified; D63.8 Anemia in other chronic diseases classified elsewhere; Z99.2 Dependence on renal dialysis; E66.01 Morbid (severe) obesity due to excess calories; F10.10 Alcohol abuse, uncomplicated; B96.4 Proteus (mirabilis) (morganii) as the cause of diseases classified elsewhere; I27.20 Pulmonary hypertension, unspecified; N40.0 Benign prostatic hyperplasia without lower urinary tract symptoms; I95.89 Other hypotension; E86.1 Hypovolemia; Z96.642 Presence of left artificial hip joint; W18.39XA Other fall on same level, initial encounter; I25.10 Atherosclerotic heart disease of native coronary artery without angina pectoris; E11.22 Type 2 diabetes mellitus with diabetic chronic kidney disease; E11.42 Type 2 diabetes mellitus with diabetic polyneuropathy; I25.2 Old myocardial infarction; Z74.01 Bed confinement status; Z75.1 Person awaiting admission to adequate facility elsewhere; Z78.9 Other specified health status; Z82.5 Family history of asthma and other chronic lower respiratory diseases; Z87.891 Personal history of nicotine dependence; Z99.81 Dependence on supplemental oxygen; Y93.89 Activity, other specified; Y92.098 Other place in other non-institutional residence as the place of occurrence of the external cause; Y99.8 Other external cause status
CPT/HCPCS: 36415; 36569; 70450; 71045; 71250; 72125; 73502; 74018; 74176; 74250; 76775; 80048; 80053; 80076; 80202; 81001; 82040; 82550; 82565; 82570; 82962; 83735; 83880; 83930; 83935; 84100; 84156; 84300; 84478; 84484; 84550; 85007; 85025; 85027; 85610; 85730; 86850; 86900; 86901; 87077; 87081; 87186; 87205; 87426; 93005; 93306; 96365; 96375; 97110; 97116; 97163; 97530; 99291; C9113; G0378; J1815; J1885; J1956; J2405; J3490; J7060; J7131; P9047